=== PATIENT | female | born 1950 | race Caucasian/White ===

== ENCOUNTER 2019-09-08 15:05 | Outpatient (CLI) | payer MEDICARE, MEDICAID, SELFPAY ==
--- NOTE | 2019-09-08 15:12 | USCV_ITS ---
Brii Vasquez Age: 68 Gender: F : 1950 Exam Date: 09/08/2019 15:22 Ordering Phys: Madelaine Vanegas Technologist: Tricia Garcia [place] [facility] [place]: RIGHT CALF PAIN HISTORY: RIGHT LEG PAIN PROCEDURES: Venous duplex imaging was performed in only the right lower extremity. The following venous structures were evaluated: common femoral vein, profunda vein, proximal portion of the greater saphenous vein, superficial femoral vein, and the popliteal vein. In addition, the posterior tibial and peroneal trunk were evaluated. Serial compression, augmentation maneuvers, and spectral Doppler flow evaluation were performed. FINDINGS: ? residual thrombus in the profunda, CFV and popliteal with incomplete filling. All other viens appear free of thrombus at this time. CONCLUSIONS No acute DVT Chronic appearing non occlusive residual thrombus deep femoral, common femoral, and popliteal veins. Richie Arnold MD (Electronically Signed) Final Date: 08 September 2019 16:37 S
== END 2019-09-08 15:06 | disposition home or self-care (01) ==
PROVIDERS: Family Provider Internal Medicine; PCP Internal Medicine; Visit Provider Physician Assistant
DX: I82.511 Chronic embolism and thrombosis of right femoral vein (principal); M79.661 Pain in right lower leg
CPT/HCPCS: 93971

== ENCOUNTER 2019-09-09 06:40 | Outpatient (CLI) | payer MEDICARE, MEDICAID, SELFPAY ==
--- NOTE | 2019-09-09 07:15 | USCV_ITS ---
Brii Vasquez Age: 68 Gender: F : 1950 Exam Date: 09/09/2019 06:43 Ordering Phys: Madelaine Vanegas Technologist: Jacklyn Enriquez [place] [facility] [place]: RIGHT CALF PAIN RIGHT LEFT Brachial 138.00 mmHg Brachial 141.00 mmHg Pressure (mmHg) Waveform Pressure (mmHg) Waveform 194.00 BUSINESS PROJECT MANAGER 191.00 170.00 DPA 177.00 1.38 Ankle/Brachial Index 1.35 132.00 Pre-Exercise Toe Pressure 115.00 FINDINGS Normal resting ABIs and TBIs bilaterally CONCLUSIONS No significant arterial obstruction, based on the above findings Dr Domingo Larson MD [facility] (Electronically Signed) Final Date: 09 September 2019 18:01 S
== END 2019-09-09 06:41 | disposition home or self-care (01) ==
LOC: RAD 06:41
PROVIDERS: Family Provider Internal Medicine; PCP Internal Medicine; Visit Provider Physician Assistant
DX: M79.661 Pain in right lower leg (principal)
CPT/HCPCS: 93922

== ENCOUNTER 2019-09-20 10:10 | Outpatient (CLI) | payer MEDICARE, MEDICAID, SELFPAY ==
--- NOTE | 2019-09-20 10:14 | MM_ITS ---
WS: [id number] SCREENING DIGITAL MAMMOGRAM WITH CAD HISTORY: SCREENING COMPARISON: 07/22/2018 and 07/04/2017 Bilateral CC and MLO views submitted. Computer aided detection analyzed. Breast composition: There are scattered areas of fibroglandular density. No suspicious masses, microc alcifications or architectural distortion. Benign calcifications within each breast. MM/[place] [id number] IMPRESSION: BI-RADS: 2-Benign FOLLOW UP: 1 Year Follow-up
== END 2019-09-20 10:11 | disposition home or self-care (01) ==
LOC: RADSHAW 10:10
PROVIDERS: Family Provider Internal Medicine; PCP Internal Medicine; Visit Provider Internal Medicine
DX: Z12.31 Encounter for screening mammogram for malignant neoplasm of breast (principal)
CPT/HCPCS: 77067

== ENCOUNTER → 2019-09-29 10:13 | Outpatient (BNVA) | payer MEDICARE, MEDICAID, SELFPAY | PROVIDERS: Family Provider Internal Medicine; PCP Internal Medicine; Visit Provider Nurse Practitioner Psychiatric/Mental Health | DX: F33.2 Major depressive disorder, recurrent severe without psychotic features (principal); F43.12 Post-traumatic stress disorder, chronic; G30.9 Alzheimer's disease, unspecified; F02.80 Dementia in other diseases classified elsewhere, unspecified severity, without behavioral disturbance, psychotic disturbance, mood disturbance, and anxiety | CPT/HCPCS: 99214 ==

== ENCOUNTER → 2019-10-19 10:44 | Outpatient (BNVA) | payer MEDICARE, MEDICAID, SELFPAY | PROVIDERS: Family Provider Internal Medicine; PCP Internal Medicine; Referring Provider Obstetrics & Gynecology; Visit Provider Obstetrics & Gynecology | DX: R10.2 Pelvic and perineal pain (principal); Z90.710 Acquired absence of both cervix and uterus | CPT/HCPCS: 76830 ==

== ENCOUNTER → 2019-10-25 13:06 | Outpatient (BNVA) | payer MEDICARE, MEDICAID, SELFPAY | PROVIDERS: Family Provider Internal Medicine; PCP Internal Medicine; Visit Provider Nurse Practitioner Psychiatric/Mental Health | DX: F33.2 Major depressive disorder, recurrent severe without psychotic features (principal); G30.9 Alzheimer's disease, unspecified; F02.80 Dementia in other diseases classified elsewhere, unspecified severity, without behavioral disturbance, psychotic disturbance, mood disturbance, and anxiety; F43.12 Post-traumatic stress disorder, chronic | CPT/HCPCS: 99214 ==

== ENCOUNTER → 2019-11-02 08:57 | Outpatient (BNVA) | payer MEDICARE, MEDICAID, SELFPAY | PROVIDERS: Family Provider Internal Medicine; PCP Internal Medicine; Visit Provider Nurse Practitioner Psychiatric/Mental Health | DX: F33.2 Major depressive disorder, recurrent severe without psychotic features (principal); F43.12 Post-traumatic stress disorder, chronic; G30.9 Alzheimer's disease, unspecified; F02.80 Dementia in other diseases classified elsewhere, unspecified severity, without behavioral disturbance, psychotic disturbance, mood disturbance, and anxiety | CPT/HCPCS: 99214 ==

== ENCOUNTER → 2019-11-16 07:59 | Outpatient (BNVA) | payer MEDICARE, MEDICAID, SELFPAY | PROVIDERS: Family Provider Internal Medicine; PCP Internal Medicine; Visit Provider Nurse Practitioner Psychiatric/Mental Health | DX: F33.2 Major depressive disorder, recurrent severe without psychotic features (principal); F43.12 Post-traumatic stress disorder, chronic; G30.9 Alzheimer's disease, unspecified; F02.80 Dementia in other diseases classified elsewhere, unspecified severity, without behavioral disturbance, psychotic disturbance, mood disturbance, and anxiety | CPT/HCPCS: 99214 ==

== ENCOUNTER → 2019-12-15 15:57 | Outpatient (BNVA) | payer MEDICARE, MEDICAID, SELFPAY | PROVIDERS: Family Provider Internal Medicine; PCP Internal Medicine; Visit Provider Social Worker | DX: F33.2 Major depressive disorder, recurrent severe without psychotic features (principal); F43.12 Post-traumatic stress disorder, chronic; G30.9 Alzheimer's disease, unspecified; F02.80 Dementia in other diseases classified elsewhere, unspecified severity, without behavioral disturbance, psychotic disturbance, mood disturbance, and anxiety | CPT/HCPCS: 90832 ==

== ENCOUNTER → 2019-12-16 08:26 | Outpatient (BNVA) | payer MEDICARE, MEDICAID, SELFPAY | PROVIDERS: Family Provider Internal Medicine; PCP Internal Medicine; Visit Provider Nurse Practitioner Psychiatric/Mental Health | DX: F33.2 Major depressive disorder, recurrent severe without psychotic features (principal); F43.12 Post-traumatic stress disorder, chronic; G30.9 Alzheimer's disease, unspecified; F02.80 Dementia in other diseases classified elsewhere, unspecified severity, without behavioral disturbance, psychotic disturbance, mood disturbance, and anxiety | CPT/HCPCS: 99214 ==

== ENCOUNTER → 2019-12-28 08:24 | Outpatient (BNVA) | payer MEDICARE, MEDICAID, SELFPAY | PROVIDERS: Family Provider Internal Medicine; PCP Internal Medicine; Visit Provider Social Worker | DX: F33.2 Major depressive disorder, recurrent severe without psychotic features (principal); F43.12 Post-traumatic stress disorder, chronic; G30.9 Alzheimer's disease, unspecified; F02.80 Dementia in other diseases classified elsewhere, unspecified severity, without behavioral disturbance, psychotic disturbance, mood disturbance, and anxiety | CPT/HCPCS: 90834 ==

== ENCOUNTER → 2019-12-31 07:43 | Outpatient (BNVA) | payer MEDICARE, MEDICAID, SELFPAY | PROVIDERS: Family Provider Internal Medicine; PCP Internal Medicine; Visit Provider Nurse Practitioner Psychiatric/Mental Health | DX: F33.2 Major depressive disorder, recurrent severe without psychotic features (principal); F43.12 Post-traumatic stress disorder, chronic; G30.9 Alzheimer's disease, unspecified; F02.80 Dementia in other diseases classified elsewhere, unspecified severity, without behavioral disturbance, psychotic disturbance, mood disturbance, and anxiety | CPT/HCPCS: 99214 ==

== ENCOUNTER → 2020-01-11 07:58 | Outpatient (BNVA) | payer MEDICARE, MEDICAID, SELFPAY | PROVIDERS: Family Provider Internal Medicine; PCP Internal Medicine; Visit Provider Social Worker | DX: F33.2 Major depressive disorder, recurrent severe without psychotic features (principal); F41.8 Other specified anxiety disorders; F41.0 Panic disorder [episodic paroxysmal anxiety]; G30.9 Alzheimer's disease, unspecified; F02.80 Dementia in other diseases classified elsewhere, unspecified severity, without behavioral disturbance, psychotic disturbance, mood disturbance, and anxiety | CPT/HCPCS: 90834 ==

== ENCOUNTER → 2020-01-13 08:33 | Outpatient (BNVA) | payer MEDICARE, MEDICAID, SELFPAY | PROVIDERS: Family Provider Internal Medicine; Visit Provider Nurse Practitioner Psychiatric/Mental Health | DX: F33.2 Major depressive disorder, recurrent severe without psychotic features (principal); F43.12 Post-traumatic stress disorder, chronic; G30.9 Alzheimer's disease, unspecified; F02.80 Dementia in other diseases classified elsewhere, unspecified severity, without behavioral disturbance, psychotic disturbance, mood disturbance, and anxiety | CPT/HCPCS: 99214 ==

== ENCOUNTER → 2020-01-17 08:36 | Outpatient (BNVA) | payer MEDICARE, MEDICAID, SELFPAY | PROVIDERS: Family Provider Internal Medicine; Visit Provider Social Worker | DX: G30.9 Alzheimer's disease, unspecified (principal); F02.80 Dementia in other diseases classified elsewhere, unspecified severity, without behavioral disturbance, psychotic disturbance, mood disturbance, and anxiety; F43.12 Post-traumatic stress disorder, chronic; F33.2 Major depressive disorder, recurrent severe without psychotic features; F41.0 Panic disorder [episodic paroxysmal anxiety] | CPT/HCPCS: 90834 ==

== ENCOUNTER → 2020-01-31 08:25 | Outpatient (BNVA) | payer MEDICARE, MEDICAID, SELFPAY | PROVIDERS: Family Provider Internal Medicine; Visit Provider Social Worker | DX: F43.12 Post-traumatic stress disorder, chronic (principal); F33.2 Major depressive disorder, recurrent severe without psychotic features; F02.80 Dementia in other diseases classified elsewhere, unspecified severity, without behavioral disturbance, psychotic disturbance, mood disturbance, and anxiety; F41.0 Panic disorder [episodic paroxysmal anxiety] | CPT/HCPCS: 90834 ==

== ENCOUNTER → 2020-02-03 07:36 | Outpatient (BNVA) | payer MEDICARE, MEDICAID, SELFPAY | PROVIDERS: Family Provider Internal Medicine; Visit Provider Nurse Practitioner Psychiatric/Mental Health | DX: F33.2 Major depressive disorder, recurrent severe without psychotic features (principal); F43.12 Post-traumatic stress disorder, chronic; G30.9 Alzheimer's disease, unspecified; F02.80 Dementia in other diseases classified elsewhere, unspecified severity, without behavioral disturbance, psychotic disturbance, mood disturbance, and anxiety | CPT/HCPCS: 99214 ==

== ENCOUNTER → 2020-02-07 08:09 | Outpatient (BNVA) | payer MEDICARE, MEDICAID, SELFPAY | PROVIDERS: Family Provider Internal Medicine; Referring Provider Nurse Practitioner Psychiatric/Mental Health; Visit Provider Specialist | DX: G30.9 Alzheimer's disease, unspecified (principal); F02.80 Dementia in other diseases classified elsewhere, unspecified severity, without behavioral disturbance, psychotic disturbance, mood disturbance, and anxiety; Z87.891 Personal history of nicotine dependence | CPT/HCPCS: 99204 ==

== ENCOUNTER → 2020-02-28 07:37 | Outpatient (BNVA) | payer MEDICARE, MEDICAID, SELFPAY | PROVIDERS: Family Provider Internal Medicine; Visit Provider Nurse Practitioner Psychiatric/Mental Health | DX: F33.2 Major depressive disorder, recurrent severe without psychotic features (principal); F43.12 Post-traumatic stress disorder, chronic; G30.9 Alzheimer's disease, unspecified; F02.80 Dementia in other diseases classified elsewhere, unspecified severity, without behavioral disturbance, psychotic disturbance, mood disturbance, and anxiety | CPT/HCPCS: 99214 ==

== ENCOUNTER → 2020-03-31 07:39 | Outpatient (BNVA) | payer MEDICARE, MEDICAID, SELFPAY | PROVIDERS: Family Provider Internal Medicine; PCP Internal Medicine; Visit Provider Nurse Practitioner Psychiatric/Mental Health | DX: F33.2 Major depressive disorder, recurrent severe without psychotic features (principal); F43.12 Post-traumatic stress disorder, chronic | CPT/HCPCS: 99214 ==

== ENCOUNTER → 2020-05-03 08:04 | Outpatient (BNVA) | payer MEDICARE, MEDICAID, SELFPAY | PROVIDERS: Family Provider Internal Medicine; PCP Internal Medicine; Visit Provider Psychiatry & Neurology Psychiatry | DX: F33.2 Major depressive disorder, recurrent severe without psychotic features (principal); F43.12 Post-traumatic stress disorder, chronic; G31.84 Mild cognitive impairment of uncertain or unknown etiology | CPT/HCPCS: 99214 ==

== ENCOUNTER → 2020-05-23 08:21 | Outpatient (BNVA) | payer MEDICARE, MEDICAID, SELFPAY | PROVIDERS: Family Provider Internal Medicine; PCP Internal Medicine; Visit Provider Specialist | DX: G31.84 Mild cognitive impairment of uncertain or unknown etiology (principal); Z87.891 Personal history of nicotine dependence | CPT/HCPCS: 96116; 99213 ==

== ENCOUNTER → 2020-05-31 07:39 | Outpatient (BNVA) | payer MEDICARE, MEDICAID, SELFPAY | PROVIDERS: Family Provider Internal Medicine; PCP Internal Medicine; Visit Provider Psychiatry & Neurology Psychiatry | DX: F33.2 Major depressive disorder, recurrent severe without psychotic features (principal); F43.12 Post-traumatic stress disorder, chronic; G31.84 Mild cognitive impairment of uncertain or unknown etiology | CPT/HCPCS: 99213 ==

== ENCOUNTER 2020-06-26 12:49 | Emergency (ER) | payer MEDICARE, MEDICAID, SELFPAY ==
[2020-06-26 13:07] VITALS: BP 133/81; PULSE 84; RESP 14; TEMP 36.8; O2SAT 95; BMI 38.2
--- NOTE | 2020-06-26 13:14 | ED_ITS ---
HPI - General Adult General: Chief complaint: General Medical Stated complaint: all over pain Time Seen by Provider: 06/26/20 13:14 History of Present Illness: HPI narrative: Patient is a 69-year-old female comes to the ED with acute on chronic lower back pain. Patient says pain started approximately 4 days ago and denies any injury or trauma to cause acute pain. She describes the pain as sharp pain radiates to left hip and upper leg. Patient currently sees pain management and has been prescribed hydrocodone 10mg for pain. Associated symptoms: Deny chest pain, dyspnea, headache(s), nausea, rash, palpitations or vomiting Review of Systems Const: Denies: fever(s), chills or fatigue Eyes: Denies: change in vision or eye discomfort ENMT: Denies: throat pain, odynophagia, nasal discharge or nasal congestion Card: Denies: chest pain, palpitations, edema, swelling of feet/ankles, dyspnea on exertion or orthopnea Resp: Denies: dyspnea, productive cough or non-productive cough GI: Denies: abdominal pain, nausea, vomiting, diarrhea, constipation or hematochezia : Denies: flank pain, dysuria or hematuria Musc: Reports: back pain (lower back with pain radiating to left hip and upper leg.); Denies: neck pain or extremity swelling Skin/Breast: Denies: rash or new lesions Neuro: Denies: headache(s), numbness in extremities or weakness in extremities PFS ED PFSH: Medical History Alzheimer's dementia Anticoagulation adequate with anticoagulant therapy Takes Eliquis CAD (coronary artery disease) Chronic pain Chronic post-traumatic stress disorder Deep vein thrombosis Dyslipidemia Essential hypertension Hypertension Hypothyroid Major depressive disorder, recurrent severe without psychotic features Obesity Overactive bladder Postmenopausal HRT (hormone replacement therapy) 12/06/2015. Stopped Prempro. New Rx: Estradiol 1 mg daily. #45. NR. 01/09/2016. Estradiol 1mg well tolerated. Renewal verbal Rx by Dr. Lala. 03/07/2016. Poor symptom control. New Rx: Estradiol 2 mg daily. 03/28/2016. Poor symptom control. New Rx: Premarin. 04/29/2016. Refill provided for Premarin 1.25mg, well tolerated. - Happy with estrogen. Feels the benefits outweigh the risk. Refills provided Sleep apnea Vaginal vault prolapse, posthysterectomy She was counseled regarding the finding of vaginal vault prolapse stage II with cystocele stage III, stress test positive and Q tip test positive. Voided 100 mL and PVR was 25 mL at previous visit. She was counseled regarding conservative management, diet and weight loss, bladder training, avoidance of bladder irritants, and Kegel exercises. She was also counseled regarding surgical management, anterior colporrhaphy with suburethral sling and sacrospinous ligament suspension. She tried conservative managements but refers symptoms have not improved and want to have surgery. She was scheduled for anterior colporrhaphy with sacrospinous ligament suspension and midurethral sling on 10/21/2018. She was counseled about perioperative clearance by PCP. The patient was informed of the risks and benefits of an anterior colporrhaphy, midurethral sling and sacrospinous ligament suspension. Risks included but were not limited to bleeding, infection, and injury to the vagina, bladder, or urethra, and incomplete resolution of symptoms. The patient expressed understanding of the risks involved, all questions were answered, and the patient consented to the procedure and signed the informed consent. Surgical History History of bladder surgery (07/19/09) History of hysterectomy TVH, Anterior Repair with Mesh, Transobturator Suburethral Sling, Cystoscopy. Indication: Uterine prolapse, cystocele, stress urinary incontinence. [facility] [place], Dr. Adalberto Harris. History of tonsillectomy Hx of removal of cyst From left wrist Status post surgery TOSS Family History Unknown Thyroid condition Patient denies medical problems Denies family history of: breast/ovarian/colon cancer Family/Other Thyroid condition Cousin Uterine cancer Aunt Grandmother Stroke Sister Diabetes Other Chronic post-traumatic stress disorder Social History Smoking and tobacco status: former smoker Alcohol intake: never Current occupational status: retired History of recent travel: No Physical Exam Const: COMMON NORMALS: no acute distress, patient oriented x3 and alert GENERAL APPEARANCE: cooperative and comfortable HENMT: COMMON NORMALS: normocephalic HEAD & SCALP: normocephalic MOUTH: Normal oral and palatal mucosa present THROAT: posterior oropharynx normal and uvula midline Neck/C-Spine: COMMON NORMALS: supple GENERAL: Yes normal visual inspection Resp: COMMON NORMALS: normal respiratory effort, No retractions, No use of accessory muscles and clear to auscultation bilaterally AUSCULTATION: clear to auscultation bilaterally Cardio: COMMON NORMALS: regular rate, regular rhythm, S1 normal heart sound present, S2 normal heart sound present, No gallops present (Cardio), No clicks present (Cardio), No murmurs present (Cardio) and Peripheral pulses 2+ throughout RATE: regular rate RHYTHM: regular rhythm HEART SOUNDS: S1 normal heart sound present and S2 normal heart sound present PERIPHERAL PULSES: Peripheral pulses 2+ throughout GI: COMMON NORMALS: Normal to inspection, nondistended, normoactive bowel sounds present, Soft to palpation, non-tender and no masses PALPATION: Yes Soft to palpation : COMMON NORMALS: Yes no CVA tenderness BLADDER/KIDNEY EXAM: Yes no CVA tenderness Back/Pelvis: COMMON NORMALS: no CVA tenderness LUMBAR SPINE/LOWER BACK: Yes paraspinal muscle tenderness Lumbar paraspinal muscle tenderness: left left lumbar paraspinal muscle tenderness: L4 and L5 Extremity: COMMON NORMALS: normal to inspection (normal visual inspection) Neuro: COMMON NORMALS: patient oriented x3 SENSORIUM/ORIENTATION: Yes alert Skin: GENERAL SKIN EXAM: dry skin Course Vital Signs: Vital signs: Vital Signs Temperature 98.2 F 06/26/20 13:07 Pulse Rate 84 06/26/20 13:07 Respiratory Rate 14 06/26/20 13:07 Blood Pressure 133/81 06/26/20 13:07 Pulse Oximetry 95 06/26/20 13:07 MDM - General Adult MDM Narrative: Medical decision making narrative: Patient is a 69-year-old female comes to the ED with Acute on chronic lower back pain. Pain radiates into e left hip and upper thigh. Patient sees pain management and is currently prescribed hydrocodone 10. Exam shows some lumbar paraspinal muscle tenderness. Patient was diagnosed with lumbar radiculopathy and sent with a prescription for tizanidine and Medrol Dosepak. She was told to continue taking her previously prescribed pain meds. she was told to follow-up with PCP in 7 to 10 days for reevaluation. Return ED precautions given. Patient understood agree with plan. Discharge Plan Discharge Patient Disposition: Home Clinical Impression: Lumbar radicular pain Condition: Stable Prescriptions: New tizanidine 2 mg capsule 2 mg PO Q8H PRN (Reason: muscle spasticity) Qty: 30 RF: 0 methylprednisolone 4 mg tablets,dose pack See Rx Instructions .ROUTE .COMPLEX Qty: 21 RF: 0 No Action estradiol 2 mg tablet 2 mg PO QDAY 90 Days Qty: 90 RF: 3 mirtazapine [Remeron] 30 mg tablet 30 mg PO .bedtime Qty: 30 RF: 4 mirtazapine [Remeron] 15 mg tablet 15 mg PO .bedtime Qty: 30 RF: 3 lorazepam 0.5 mg tablet 0.5 mg PO BID@08,16 Qty: 30 RF: 3 memantine [Namenda] 10 mg tablet 10 mg PO BID Qty: 60 RF: 4 trazodone 150 mg tablet 300 mg PO .bedtime Qty: 60 RF: 3 bupropion HCl [Wellbutrin SR] 200 mg tablet sustained-release 12 hr 200 mg PO BID Qty: 60 RF: 2 buspirone 10 mg tablet 10 mg PO TID Qty: 90 RF: 2 levothyroxine 75 mcg capsule 75 mcg PO QDAY RF: 0 verapamil 240 mg capsule,ext rel. pellets 24 hr 240 mg PO QDAY RF: 0 montelukast [Singulair] 10 mg tablet 10 mg PO QDAY RF: 0 potassium chloride [Klor-Con M20] 20 mEq tablet,ER particles/crystals 20 meq PO BID RF: 0 docusate sodium [Colace] 100 mg capsule 100 mg PO BID RF: 0 Eliquis 5 mg tablet 5 mg PO DAILY RF: 0 hydrocodone-acetaminophen 10-325 mg tablet 1 tab PO BID PRNRF: 0 hydrochlorothiazide 25 mg tablet 25 mg PO QDAY RF: 0 Travatan Z 0.004 % drops 1 drop ophthalmic (eye) DAILY PRNRF: 0 rivastigmine tartrate 1.5 mg capsule 1.5 mg PO BID Qty: 60 RF: 5 oxybutynin chloride 5 mg tablet 5 mg PO QDAY 90 Days Qty: 90 RF: 3 Myrbetriq 25 mg tablet extended release 24 hr 25 mg PO DAILY 90 Days Qty: 90 RF: 3 methylprednisolone [Medrol (David)] 4 mg tablets,dose pack See Rx Instructions PO PER PKG DIR Qty: 21 RF: 0 atorvastatin 40 mg tablet 40 mg PO QDAY Qty: 90 RF: 3 quetiapine [Seroquel] 50 mg tablet 50 mg PO BID Qty: 60 RF: 0 Discharge Orders: Discharge Order (Routine); Ordered 06/26/20 Ordered By: Zain Frazier Referrals: Meng Dotson DO [Primary Care Provider] - Discharge Diet: Regular Discharge Activity: Increase activity as tolerated Patient Instructions: Lumbar Radiculopathy (ED) Activity Restrictions/Additional Instructions: Follow-up with medical provider in 7 to 10 days for reevaluation. Take medications as prescribed. Continue taking all home meds including your previously prescribed pain medications. Muscle relaxer tizanidine can cause some drowsiness when you take it so take it at night. If you use during the day take with caution due to drowsiness side effects. Apply cold pack or heat on lower back to help with symptoms, stretch lower back daily. Return to the ER or your medical provider if condition worsens. Please read and understand discharge instructions. If any questions, please ask. Discharge Date/Time: 06/26/20 13:51 Coding Level of Care Code ED Campus Recruiting Coordinator for Chg Fwd Exam Detailed
== END 2020-06-26 13:51 | disposition home or self-care (01) ==
PROVIDERS: Emergency Provider Physician Assistant; PCP Internal Medicine
DX: M54.16 Radiculopathy, lumbar region (principal); Z79.01 Long term (current) use of anticoagulants; G30.9 Alzheimer's disease, unspecified; F02.80 Dementia in other diseases classified elsewhere, unspecified severity, without behavioral disturbance, psychotic disturbance, mood disturbance, and anxiety; I25.10 Atherosclerotic heart disease of native coronary artery without angina pectoris; E78.5 Hyperlipidemia, unspecified; I10 Essential (primary) hypertension; Z87.891 Personal history of nicotine dependence
CPT/HCPCS: 12345; 99281

== ENCOUNTER → 2020-06-28 07:56 | Outpatient (BNVA) | payer MEDICARE, MEDICAID, SELFPAY | PROVIDERS: PCP Internal Medicine; Visit Provider Psychiatry & Neurology Psychiatry | DX: F33.2 Major depressive disorder, recurrent severe without psychotic features (principal); F43.12 Post-traumatic stress disorder, chronic; G31.84 Mild cognitive impairment of uncertain or unknown etiology | CPT/HCPCS: 99213 ==

== ENCOUNTER 2020-07-11 16:24 | Emergency (ER) | payer MEDICARE, MEDICAID, SELFPAY ==
[2020-07-11 16:30] VITALS: BP 124/72; PULSE 95; RESP 18; TEMP 36.5; O2SAT 95; BMI 39.9
--- NOTE | 2020-07-11 20:56 | ECG_ITS ---
[facility] Test Date: 2020-07-11 Pat Name: Brii Vasquez Department: Room: Gender: Female Appeals Nurse: : 1950 Requested By: Zain Frazier Order Number: [id number] MD: Nicola Mcwilliams M.D. Measurements Intervals [place] Rate: 66 P: -7 TN: 140 QRS: -28 QRSD: 98 T: 7 QT: 404 QTc: 425 Interpretive Statements SINUS RHYTHM Compared to ECG 03/29/2019 11:38:53 No significant changes Electronically Signed On 07-12-2020 10:15:11 VIDEOGAME DESIGNER by Nicola Mcwilliams M.D. [id number]
--- NOTE | 2020-07-11 20:56 | XR_ITS ---
WS: [id number] Portable AP upright chest, 07/11/2020 Clinical Data: dizziness Comparison: Portable chest, 03/29/2019 Findings: No nodules, masses or effusions are seen. The heart is normal. The pulmonary vascularity is not increased. No pneumonia or pneumothorax is seen. The aortic arch and descending aorta are minima lly tortuous. XR/XR chest 1V portable [id number] Impression: Atherosclerosis.
--- NOTE | 2020-07-11 20:58 | ED_ITS ---
HPI - Headache General: Chief Complaint: Headache Stated Complaint: Dizzy/Headache/Aches Time Seen by Provider: 07/11/20 20:56 History of Present Illness: HPI Narrative: Patient is a 69-year-old female who comes to the ED with dizziness and a headache. Past medical history of fibromyalgia DVT and on blood thinner, hypertension, dyslipidemia. She also describes having aching pain all over that she says is her fibromyalgia acting up. Symptoms have been going on for about a week now. Headache is described at the top of her head and then goes down the back of her head. She is also complaining of having pain all over her body. Associated symptoms: Deny chest pain, fever(s), nausea, rash or vomiting Review of Systems Const: Denies: fever(s), chills or fatigue Eyes: Denies: change in vision or eye discomfort ENMT: Denies: throat pain, odynophagia, nasal discharge or nasal congestion Card: Denies: chest pain, palpitations, edema, swelling of feet/ankles, dyspnea on exertion or orthopnea Resp: Denies: dyspnea, productive cough or non-productive cough GI: Denies: abdominal pain, nausea, vomiting, diarrhea, constipation or hematochezia : Denies: flank pain, dysuria or hematuria Musc: Denies: neck pain, back pain or extremity swelling Skin/Breast: Denies: rash or new lesions Neuro: Reports: headache(s) and dizziness; Denies: numbness in extremities or weakness in extremities PFS ED PFSH: Medical History Alzheimer's dementia Anticoagulation adequate with anticoagulant therapy Takes Eliquis CAD (coronary artery disease) Chronic pain Chronic post-traumatic stress disorder Deep vein thrombosis Dyslipidemia Essential hypertension Hypertension Hypothyroid Major depressive disorder, recurrent severe without psychotic features Obesity Overactive bladder Postmenopausal HRT (hormone replacement therapy) 12/06/2015. Stopped Prempro. New Rx: Estradiol 1 mg daily. #45. NR. 01/09/2016. Estradiol 1mg well tolerated. Renewal verbal Rx by Dr. Lala. 03/07/2016. Poor symptom control. New Rx: Estradiol 2 mg daily. 03/28/2016. Poor symptom control. New Rx: Premarin. 04/29/2016. Refill provided for Premarin 1.25mg, well tolerated. - Happy with estrogen. Feels the benefits outweigh the risk. Refills provided Sleep apnea Vaginal vault prolapse, posthysterectomy She was counseled regarding the finding of vaginal vault prolapse stage II with cystocele stage III, stress test positive and Q tip test positive. Voided 100 mL and PVR was 25 mL at previous visit. She was counseled regarding conservative management, diet and weight loss, bladder training, avoidance of bladder irritants, and Kegel exercises. She was also counseled regarding surgical management, anterior colporrhaphy with suburethral sling and sacrospinous ligament suspension. She tried conservative managements but refers symptoms have not improved and want to have surgery. She was scheduled for anterior colporrhaphy with sacrospinous ligament suspension and midurethral sling on 10/21/2018. She was counseled about perioperative clearance by PCP. The patient was informed of the risks and benefits of an anterior colporrhaphy, midurethral sling and sacrospinous ligament suspension. Risks included but were not limited to bleeding, infection, and injury to the vagina, bladder, or urethra, and incomplete resolution of symptoms. The patient expressed understanding of the risks involved, all questions were answered, and the patient consented to the procedure and signed the informed consent. Surgical History History of bladder surgery (07/19/09) History of hysterectomy TVH, Anterior Repair with Mesh, Transobturator Suburethral Sling, Cystoscopy. Indication: Uterine prolapse, cystocele, stress urinary incontinence. [facility] [place], Dr. Adalberto Harris. History of tonsillectomy Hx of removal of cyst From left wrist Status post surgery TOSS Family History Unknown Thyroid condition Patient denies medical problems Denies family history of: breast/ovarian/colon cancer Family/Other Thyroid condition Cousin Uterine cancer Aunt Grandmother Stroke Sister Diabetes Other Chronic post-traumatic stress disorder Social History Smoking and tobacco status: former smoker Alcohol intake: never Current occupational status: retired History of recent travel: No Physical Exam Const: COMMON NORMALS: no acute distress, patient oriented x3 and alert GENERAL APPEARANCE: cooperative and comfortable HENMT: COMMON NORMALS: normocephalic HEAD & SCALP: normocephalic MOUTH: Normal oral and palatal mucosa present THROAT: posterior oropharynx normal and uvula midline Eye: COMMON NORMALS: Equal, round and reactive pupils present and EOMs intact bilaterally PUPIL: Yes Equal, round and reactive pupils present Neck/C-Spine: COMMON NORMALS: supple GENERAL: Yes normal visual inspection Resp: COMMON NORMALS: normal respiratory effort, No retractions, No use of accessory muscles and clear to auscultation bilaterally AUSCULTATION: clear to auscultation bilaterally Cardio: COMMON NORMALS: regular rate, regular rhythm, S1 normal heart sound present, S2 normal heart sound present, No gallops present (Cardio), No clicks present (Cardio), No murmurs present (Cardio) and Peripheral pulses 2+ throughout RATE: regular rate RHYTHM: regular rhythm HEART SOUNDS: S1 normal heart sound present and S2 normal heart sound present PERIPHERAL PULSES: Peripheral pulses 2+ throughout GI: COMMON NORMALS: Normal to inspection, nondistended, normoactive bowel sounds present, Soft to palpation, non-tender and no masses PALPATION: Yes Soft to palpation : COMMON NORMALS: Yes no CVA tenderness BLADDER/KIDNEY EXAM: Yes no CVA tenderness Back/Pelvis: COMMON NORMALS: no CVA tenderness Extremity: COMMON NORMALS: normal to inspection and no pedal edema Neuro: COMMON NORMALS: patient oriented x3, CN's II-XII intact bilaterally, moves all extremities, no focal motor deficits and no sensory deficits noted SENSORIUM/ORIENTATION: Yes alert SENSORY EXAM: Yes extremities (intact) MOTOR EXAM: 5/5 motor strength present throughout Skin: GENERAL SKIN EXAM: dry skin Course Reevaluation(s): Reevaluation #1: Patient says she is feeling better after getting IV fluids, Tylenol and Solu-Medrol. Headache has improved. Time: 23:23 Vital Signs: Vital signs: Vital Signs Temperature 97.7 F 07/11/20 16:30 Pulse Rate 78 07/12/20 01:34 Respiratory Rate 16 07/12/20 01:34 Blood Pressure 123/87 07/12/20 01:34 Pulse Oximetry 98 07/12/20 01:34 MDM - Headache MDM Narrative: Medical decision making narrative: Patient is a 69-year-old female comes to the ED with headache, dizziness and pain all over. Patient has a history of fibromyalgia, hypertension, CAD, dyslipidemia. Patient sees pain management and has a prescription for hydrocodone 10mg for pain. Patient appears in no acute distress or pain. All labs were unremarkable and troponin negative and EKG showed normal sinus with no ST segment elevation or depression seen. CT of head showed no acute findings. Chest x-ray normal. Patient was given IV fluids, Tylenol and Solu-Medrol. She says her symptoms improved. Patient diagnosed with headache and chronic pain. Patient was discharged and told to follow-up with PCP for reevaluation in 5 to 7 days. Return to ED precautions given. Lab Data: Attestation: I reviewed the patient's lab results. Labs: Lab Results 07/11/20 07/11/20 07/11/20 Range/Units 00:20 21:40 21:40 WBC 11.8 H (4.0-10.0) 10^3/ uL RBC 4.94 (4.1-5.3) 10^6/u L Hgb 14.0 (11.5-15.3) g/dL Hct 43.4 (37.0-47.0) % MCV 87.9 (81-99) fL MCH 28.3 (28.0-34.0) pg MCHC 32.3 (30.0-36.0) g/dL RDW 13.2 (12.1-15.1) % Plt Count 291 (130-400) 10^3/c mm MPV 9.3 (7.4-10.4) fL Neut % (Auto) 58.6 % Lymph % (Auto) 32.7 % [place] % (Auto) 6.5 % Eos % (Auto) 1.5 % Baso % (Auto) 0.4 % Neut # (Auto) 6.88 (1.8-7.7) 10^3/u L Lymph # (Auto) 3.8 (0.8-4.8) 10^3/u L [place] # (Auto) 0.8 (0.2-0.9) 10^3/u L Eos # (Auto) 0.2 (0.0-0.8) 10^3/u L Baso # (Auto) 0.1 (0.0-0.1) 10^3/u L Nucleated RBC % (a uto) 0 % Nucleated RBCs # 0.0 /100WBC Sodium 139 (136-145) mmol/L Potassium 4.3 (3.5-5.1) mmol/L Chloride 101 (98-107) mmol/L Carbon Dioxide 28 (22-29) mmol/L Anion Gap 14.3 (5-19) BUN 11 (8-23) mg/dL Creatinine 0.8 (0.5-0.9) mg/dL GFR Calculation 71.3 L (90-130) mL/min Glucose 94 (65-115) mg/dL Calculated Osmolal ity 287 (285-295) mOsm/k g Calcium 10.0 (8.5-10.5) mg/dL Total Bilirubin 0.2 (0.15-1.2) mg/dL AST 20 (0-32) U/L ALT 14 (0-33) U/L Alkaline Phosphata se 132 H (35-105) IU/L Troponin T Baselin e (0-10) ng/L Troponin T [address] [place] 13.70 H (0-10) ng/L Delta Troponin T Not Reportable Total Protein 7.2 (6.6-8.7) g/dL Albumin 4.1 (3.5-5.2) g/dL Globulin 3.1 (1.3-4.6) g/dL Lipase 32 (13-60) U/L Urine Color (Yellow) Urine Appearance (CLEAR) Urine pH (5-7) Ur Specific Gravit y (1.005-1.030) Urine Protein (Negative) Urine Glucose (UA) (Normal) Urine Ketones (Negative) Urine Blood (Negative) Urine Nitrate (Negative) Urine Bilirubin (Negative) Urine Urobilinogen (Negative) mg/dL Ur Leukocyte Krystyna ase (Negative) Urine RBC (0-2) /hpf Urine WBC (0-5) /hpf Ur Squamous Epith Cells (0-5) /hpf Amorphous Sediment Urine Bacteria (NONE) /hpf 07/11/20 07/11/20 Range/Units 21:40 21:40 WBC (4.0-10.0) 10^3/ uL RBC (4.1-5.3) 10^6/u L Hgb (11.5-15.3) g/dL Hct (37.0-47.0) % MCV (81-99) fL MCH (28.0-34.0) pg MCHC (30.0-36.0) g/dL RDW (12.1-15.1) % Plt Count (130-400) 10^3/c mm MPV (7.4-10.4) fL Neut % (Auto) % Lymph % (Auto) % [place] % (Auto) % Eos % (Auto) % Baso % (Auto) % Neut # (Auto) (1.8-7.7) 10^3/u L Lymph # (Auto) (0.8-4.8) 10^3/u L [place] # (Auto) (0.2-0.9) 10^3/u L Eos # (Auto) (0.0-0.8) 10^3/u L Baso # (Auto) (0.0-0.1) 10^3/u L Nucleated RBC % (a uto) % Nucleated RBCs # /100WBC Sodium (136-145) mmol/L Potassium (3.5-5.1) mmol/L Chloride (98-107) mmol/L Carbon Dioxide (22-29) mmol/L Anion Gap (5-19) BUN (8-23) mg/dL Creatinine (0.5-0.9) mg/dL GFR Calculation (90-130) mL/min Glucose (65-115) mg/dL Calculated Osmolal ity (285-295) mOsm/k g Calcium (8.5-10.5) mg/dL Total Bilirubin (0.15-1.2) mg/dL AST (0-32) U/L ALT (0-33) U/L Alkaline Phosphata se (35-105) IU/L Troponin T Baselin e 13 H (0-10) ng/L Troponin T [address] [place] (0-10) ng/L Delta Troponin T Total Protein (6.6-8.7) g/dL Albumin (3.5-5.2) g/dL Globulin (1.3-4.6) g/dL Lipase (13-60) U/L Urine Color Yellow (Yellow) Urine Appearance Clear (CLEAR) Urine pH 5.0 (5-7) Ur Specific Gravit y 1.015 (1.005-1.030) Urine Protein Neg (Negative) Urine Glucose (UA) Norm (Normal) Urine Ketones Negative (Negative) Urine Blood Neg (Negative) Urine Nitrate Negative (Negative) Urine Bilirubin Neg (Negative) Urine Urobilinogen Norm (Negative) mg/dL Ur Leukocyte Krystyna ase Negative (Negative) Urine RBC None (0-2) /hpf Urine WBC None (0-5) /hpf Ur Squamous Epith Cells None (0-5) /hpf Amorphous Sediment Not Reportable Urine Bacteria None (NONE) /hpf Imaging Data^: CT Head: Attestation: I personally reviewed and interpreted this imaging study as follows: Radiologist's impression: [address] [address] [address] Scan Report Signed Patient: Brii Vasquez Unit #: [id number] : 1950 Age/Sex: 69 / F ADM Date: 07/11/20 Loc: ER Room/Bed: Attending Dr: Ordering Provider/Ordering MD: Zain Frazier Date of Service: 07/11/20 Procedure(s): CT head wo con* [id number] Accession Number(s): [id number] Report Number: [id number] PROCEDURE INFORMATION: Exam: CT Head Without Contrast Exam date and time: 07/11/2020 9:15 PM Age: 69 years old Clinical indication: Dizziness; Additional info: ALANIZ and dizziness TECHNIQUE: Imaging protocol: Computed tomography of the head without contrast. Radiation optimization: All CT scans at this facility use at least one of these dose optimization techniques: automated exposure control; mA and/or kV adjustment per patient size (includes targeted exams where dose is matched to clinical indication); or iterative reconstruction. COMPARISON: No relevant prior studies available. RADIATION DOSE METRICS: Total DLP (mGy-cm): 904.29 FINDINGS: Brain: Mild parenchymal volume loss noted. There is decreased attenuation of the periventricular white matter, consistent with mild microangiopathic chronic white matter disease. No intracranial hemorrhage noted. Cerebral ventricles: The ventricles are proportional to the sulci. No hydrocephalus is noted. Bones/joints: No fracture or other acute osseous abnormality. Paranasal sinuses: The paranasal sinuses, as demonstrated, appear clear. Mastoid air cells: The mastoid air cells are clear bilaterally. Soft tissues: The soft tissues appear unremarkable. CT/CT head wo con* [id number] IMPRESSION: No acute intracranial abnormality demonstrated. Radiation Dose CTDIVOL = (mGy): DLP = 904.29 (mGy-cm) Dictated By: Evangelista Luo MD Signed By: Evangelista Luo MD Signed Date/Time: 07/11/202143 DD/ 41 CXR: Attestation: I personally reviewed and interpreted this imaging study as follows: My impression: Chest x-ray shows no acute findings. EKG Data^: EKG 1: Attestation: I personally reviewed and interpreted this EKG as follows: EKG interpretation date: 07/11/20 Interpretation: Sinus rhythm, 66 bpm, no ST segment elevation or depression seen. EKG 2: Attestation: I personally reviewed and interpreted this EKG as follows: EKG interpretation date: 07/11/20 Interpretation: Sinus rhythm, 68 bpm, no ST segment elevation or depression seen. No acute change compared to EKG done at 2200. Discharge Plan Discharge Patient Disposition: Home Clinical Impression: Headache Qualifiers: Headache type: tension-type Headache chronicity pattern: acute headache Intractability: not intractable Qualified Code(s): G44.209 - Tension-type headache, unspecified, not intractable Chronic pain Qualifiers: Chronic pain type: chronic pain syndrome Qualified Code(s): G89.4 - Chronic pain syndrome Condition: Stable Prescriptions: No Action memantine [Namenda] 10 mg tablet 10 mg PO BID Qty: 60 RF: 4 bupropion HCl [Wellbutrin SR] 200 mg tablet sustained-release 12 hr 200 mg PO BID Qty: 60 RF: 2 levothyroxine 75 mcg capsule 75 mcg PO DAILY RF: 0 verapamil 240 mg capsule,ext rel. pellets 24 hr 240 mg PO QDAY RF: 0 montelukast [Singulair] 10 mg tablet 10 mg PO QDAY RF: 0 potassium chloride [Klor-Con M20] 20 mEq tablet,ER particles/crystals 20 meq PO BID RF: 0 docusate sodium [Colace] 100 mg capsule 100 mg PO BID RF: 0 Eliquis 5 mg tablet 5 mg PO DAILY RF: 0 hydrocodone-acetaminophen 10-325 mg tablet 1 tab PO BID PRN (Reason: Pain) RF: 0 hydrochlorothiazide 25 mg tablet 25 mg PO QDAY RF: 0 Travatan Z 0.004 % drops 1 drop ophthalmic (eye) DAILY PRN (Reason: UNKNOWN) RF: 0 rivastigmine tartrate 1.5 mg capsule 1.5 mg PO BID Qty: 60 RF: 5 oxybutynin chloride 5 mg tablet 5 mg PO QDAY 90 Days Qty: 90 RF: 3 Myrbetriq 25 mg tablet extended release 24 hr 25 mg PO DAILY 90 Days Qty: 90 RF: 3 buspirone 10 mg tablet 20 mg PO TID Qty: 180 RF: 2 trazodone 150 mg tablet 300 mg PO .bedtime Qty: 60 RF: 2 mirtazapine [Remeron] 15 mg tablet 15 mg PO .bedtime Qty: 30 RF: 2 mirtazapine [Remeron] 30 mg tablet 30 mg PO .bedtime Qty: 30 RF: 2 tizanidine 2 mg capsule 2 mg PO Q8H PRN (Reason: muscle spasticity) Qty: 30 RF: 0 meloxicam 7.5 mg tablet 7.5 mg PO DAILY PRN (Reason: UNKNOWN) RF: 0 estradiol 2 mg tablet 2 mg PO DAILY RF: 0 Discharge Orders: Discharge Order (Routine); Ordered 07/12/20 Ordered By: Zain Frazier Referrals: Meng Dotson DO [Primary Care Provider] - Discharge Diet: Regular Discharge Activity: Increase activity as tolerated Patient Instructions: Headache Activity Restrictions/Additional Instructions: Follow-up with medical provider as directed in 5 to 7 days. Continue taking all home medications as prescribed. Return to the ER or your medical provider if condition worsens. Please read and understand discharge instructions. If any questions, please ask. Coding Level of Care Code ED [employer] [facility] Exam Comprehensive
[2020-07-11 22:09] VITALS: BP 121/73; PULSE 74; RESP 25; O2SAT 97
[2020-07-11 22:31] LABS: Basophils # 0.1 10^3/uL (0.0-0.1); Basophils % 0.4 %; Eosinophils # 0.2 10^3/uL (0.0-0.8); Eosinophils % 1.5 %; Hematocrit 43.4 % (37.0-47.0); Lymphocytes # 3.8 10^3/uL (0.8-4.8); Lymphocytes % 32.7 %; Mean Corpuscular HGB Conc 32.3 g/dL (30.0-36.0); Mean Corpuscular Hemoglobin 28.3 pg (28.0-34.0); Mean Corpuscular Volume 87.9 fL (81-99); Mean Platelet Volume 9.3 fL (7.4-10.4); Monocytes # 0.8 10^3/uL (0.2-0.9); Monocytes % 6.5 %; Neutrophils # 6.88 10^3/uL (1.8-7.7); Neutrophils % 58.6 %; Nucleated Red Blood Cells % 0 %; Platelet Count 291 10^3/cmm (130-400); Red Blood Count 4.94 10^6/uL (4.1-5.3); Red Cell Distribution Width 13.2 % (12.1-15.1); White Blood Count 11.8 10^3/uL (4.0-10.0)
[2020-07-11 22:34] LABS: Alanine Aminotransferase 14 U/L (0-33); Albumin Level 4.1 g/dL (3.5-5.2); Alkaline Phosphatase 132 IU/L (35-105); Anion Gap 14.3 (5-19); Aspartate Amino Transferase 20 U/L (0-32); Blood Urea Nitrogen 11 mg/dL (8-23); Carbon Dioxide 28 mmol/L (22-29); Chloride 101 mmol/L (98-107); Globulin 3.1 g/dL (1.3-4.6); Glomerular Filtration Rate 71.3 mL/min (90-130); Glucose 94 mg/dL (65-115); Lipase 32 U/L (13-60); Osmolality Calculated 287 mOsm/kg (285-295); Potassium 4.3 mmol/L (3.5-5.1); Sodium 139 mmol/L (136-145); Total Bilirubin 0.2 mg/dL (0.15-1.2); Total Protein 7.2 g/dL (6.6-8.7)
[2020-07-11 22:36] LABS: Troponin(5th) Baseline 13 ng/L (0-10)
[2020-07-11 22:39] LABS: Bilirubin Urine Neg (Negative); Blood Urine Neg (Negative); Glucose Urine UA Norm (Normal); Ketones Urine Negative (Negative); Leukocyte Esterase Urine Negative (Negative); Nitrate Urine Negative (Negative); Protein Urine Neg (Negative); Specific Gravity, Urine 1.015 (1.005-1.030); Urine Appearance Clear (CLEAR); Urine Color Yellow (Yellow); Urobilinogen Urine Norm (Negative)
[2020-07-11 22:40] LABS: Add Urine Culture? No
--- NOTE | 2020-07-11 22:56 | ECG_ITS ---
[facility] Test Date: 2020-07-11 Pat Name: Brii Vasquez Department: Room: Gender: Female [employer]ology [employer]cheology Instructor: : 1950 Requested By: Zain Frazier Order Number: [id number] [place] MD: Nicola Mcwilliams M.D. Measurements Intervals [place] Rate: 68 P: 69 WI: 145 QRS: 87 QRSD: 88 T: 67 QT: 392 QTc: 419 Interpretive Statements SINUS RHYTHM Compared to ECG 07/11/2020 22:00:14 No significant changes Electronically Signed On 07-12-2020 10:20:54 DIRECTOR OF EVENT MANAGEMENT by Nicola Mcwilliams M.D. [id number]
[2020-07-11] MEDS: sodium chloride 0.9% 1,000 ML 999 ML IV (23:04)
[2020-07-12 01:34] VITALS: BP 123/87; PULSE 78; RESP 16; O2SAT 98
== END 2020-07-12 01:36 | disposition home or self-care (01) ==
PROVIDERS: Emergency Provider Physician Assistant; PCP Internal Medicine
DX: G44.209 Tension-type headache, unspecified, not intractable (principal); G89.4 Chronic pain syndrome; Z79.01 Long term (current) use of anticoagulants; G30.9 Alzheimer's disease, unspecified; F02.80 Dementia in other diseases classified elsewhere, unspecified severity, without behavioral disturbance, psychotic disturbance, mood disturbance, and anxiety; I25.10 Atherosclerotic heart disease of native coronary artery without angina pectoris; E78.5 Hyperlipidemia, unspecified; I10 Essential (primary) hypertension; Z87.891 Personal history of nicotine dependence
CPT/HCPCS: 12345; 70450; 71045; 80053; 81001; 83690; 84484; 85025; 87040; 93005; 96361; 96374; 96375; 99283; 99284; J0131; J2930; J7030

== ENCOUNTER → 2020-07-24 13:08 | Outpatient (BNVA) | payer MEDICARE, MEDICAID, SELFPAY | PROVIDERS: PCP Internal Medicine; Referring Provider Nurse Practitioner; Visit Provider Orthopaedic Surgery | DX: M17.11 Unilateral primary osteoarthritis, right knee (principal) | CPT/HCPCS: 73560; 73565 ==

== ENCOUNTER → 2020-08-09 08:27 | Outpatient (BNVA) | payer MEDICARE, MEDICAID, SELFPAY | PROVIDERS: PCP Internal Medicine; Visit Provider Specialist | DX: G31.84 Mild cognitive impairment of uncertain or unknown etiology (principal); Z87.891 Personal history of nicotine dependence | CPT/HCPCS: 99213 ==

== ENCOUNTER → 2020-08-15 09:27 | Outpatient (BNVA) | payer MEDICARE, MEDICAID, SELFPAY | PROVIDERS: PCP Internal Medicine; Visit Provider Psychiatry & Neurology Psychiatry | DX: F33.2 Major depressive disorder, recurrent severe without psychotic features (principal); F43.12 Post-traumatic stress disorder, chronic; G31.84 Mild cognitive impairment of uncertain or unknown etiology; F41.1 Generalized anxiety disorder | CPT/HCPCS: 99213 ==

== ENCOUNTER → 2020-09-28 08:34 | Outpatient (BNVA) | payer MEDICARE, MEDICAID, SELFPAY | PROVIDERS: PCP Internal Medicine; Visit Provider Psychiatry & Neurology Psychiatry | DX: F41.1 Generalized anxiety disorder (principal); F33.2 Major depressive disorder, recurrent severe without psychotic features; F43.12 Post-traumatic stress disorder, chronic; G31.84 Mild cognitive impairment of uncertain or unknown etiology | CPT/HCPCS: 99214 ==

== ENCOUNTER → 2020-10-26 08:13 | Outpatient (BNVA) | payer MEDICARE, MEDICAID, SELFPAY | PROVIDERS: PCP Internal Medicine; Visit Provider Psychiatry & Neurology Psychiatry | DX: F41.1 Generalized anxiety disorder (principal); G31.84 Mild cognitive impairment of uncertain or unknown etiology; F33.2 Major depressive disorder, recurrent severe without psychotic features; F43.12 Post-traumatic stress disorder, chronic | CPT/HCPCS: 99214 ==

== ENCOUNTER → 2020-11-21 12:27 | Outpatient (BNVA) | payer MEDICARE, MEDICAID, SELFPAY | PROVIDERS: PCP Internal Medicine; Visit Provider Psychiatry & Neurology Psychiatry | DX: F41.1 Generalized anxiety disorder (principal); G31.84 Mild cognitive impairment of uncertain or unknown etiology; F33.2 Major depressive disorder, recurrent severe without psychotic features; F43.12 Post-traumatic stress disorder, chronic | CPT/HCPCS: 99214 ==

== ENCOUNTER → 2020-12-19 12:44 | Outpatient (BNVA) | payer MEDICARE, MEDICAID, SELFPAY | PROVIDERS: PCP Internal Medicine; Visit Provider Psychiatry & Neurology Psychiatry | DX: F41.1 Generalized anxiety disorder (principal); F33.2 Major depressive disorder, recurrent severe without psychotic features; F43.12 Post-traumatic stress disorder, chronic; G31.84 Mild cognitive impairment of uncertain or unknown etiology | CPT/HCPCS: 99213 ==

== ENCOUNTER → 2021-01-22 11:17 | Outpatient (BNVA) | payer MEDICARE, MEDICAID, SELFPAY | PROVIDERS: PCP Internal Medicine; Visit Provider Psychiatry & Neurology Psychiatry | DX: F41.1 Generalized anxiety disorder (principal); F33.2 Major depressive disorder, recurrent severe without psychotic features; G31.84 Mild cognitive impairment of uncertain or unknown etiology | CPT/HCPCS: 99213 ==

== ENCOUNTER → 2021-03-15 09:15 | Outpatient (BNVA) | payer MEDICARE, MEDICAID, SELFPAY | PROVIDERS: PCP Internal Medicine; Visit Provider Obstetrics & Gynecology | DX: N39.46 Mixed incontinence (principal); N81.6 Rectocele; N81.9 Female genital prolapse, unspecified; Z20.822 Contact with and (suspected) exposure to COVID-19 | CPT/HCPCS: 87635 ==

== ENCOUNTER → 2021-03-20 12:29 | Outpatient (BNVA) | payer MEDICARE, MEDICAID, SELFPAY | PROVIDERS: PCP Internal Medicine; Visit Provider Psychiatry & Neurology Psychiatry | DX: F43.12 Post-traumatic stress disorder, chronic (principal); F33.2 Major depressive disorder, recurrent severe without psychotic features; G31.84 Mild cognitive impairment of uncertain or unknown etiology; F41.1 Generalized anxiety disorder | CPT/HCPCS: 99213 ==

== ENCOUNTER 2021-03-21 14:10 | Observation (INO) | payer MEDICARE, MEDICAID, SELFPAY ==
[2021-03-19 11:23] VITALS: BMI 40.7
--- NOTE | 2021-03-19 11:55 | ANES.PREANE2 ---
Pre-Anesthetic Assessment Pre-Anesthetic Assessment: Height/Weight: Height 1.6 m Weight 104.326 kg Preop Diagnosis: Incontinence Proposed Procedure: Operation Date: 03/21/21 10:20 Proposed Procedures p Midurethral singel incision sling 99373 44620 N39.46 N81.6(Not Applicable) - Virgilio Cintron MD s Posterior Repair Posterior Colporrhaphy(Not Applicable) - Virgilio Cintron MD Familial anesthetic complications: None Social: Social History: No alcohol and No tobacco Exam: Pre-Anes Outpt Exam: alert, oriented x 3, clear to auscultation bilaterally and regular rate & rhythm Airway: Cervical ROM: WNL MP: 4 Dentition: Chipped Pulmonary: Pulmonary: SOB CV/HEM: CV/HEM: DVT (Eliquis - occured over 2 - 3 years ago) and HTN GI: GI: GERD Metabolic: Metabolic: Hyperlipidemia, Morbid obesity and Thyroid Musc/skel: Musc/skel: Lower Back Pain Neuropsych: Neuropsych: Anxiety and Dementia (mild) Anesthetic Plan: ASA status: 3 Anesthesia: General Risk of > 500 ml blood loss (7ml/kg in children): No PFSH Anesthesia PFSH: Medical History Alzheimer's dementia Anticoagulation adequate with anticoagulant therapy Takes Eliquis CAD (coronary artery disease) Chronic pain Chronic post-traumatic stress disorder Deep vein thrombosis Dyslipidemia Essential hypertension Hypertension Hypothyroid Major depressive disorder, recurrent severe without psychotic features Obesity Overactive bladder Postmenopausal HRT (hormone replacement therapy) 12/06/2015. Stopped Prempro. New Rx: Estradiol 1 mg daily. #45. NR. 01/09/2016. Estradiol 1mg well tolerated. Renewal verbal Rx by Dr. Lala. 03/07/2016. Poor symptom control. New Rx: Estradiol 2 mg daily. 03/28/2016. Poor symptom control. New Rx: Premarin. 04/29/2016. Refill provided for Premarin 1.25mg, well tolerated. - Happy with estrogen. Feels the benefits outweigh the risk. Refills provided Sleep apnea Vaginal vault prolapse, posthysterectomy She was counseled regarding the finding of vaginal vault prolapse stage II with cystocele stage III, stress test positive and Q tip test positive. Voided 100 mL and PVR was 25 mL at previous visit. She was counseled regarding conservative management, diet and weight loss, bladder training, avoidance of bladder irritants, and Kegel exercises. She was also counseled regarding surgical management, anterior colporrhaphy with suburethral sling and sacrospinous ligament suspension. She tried conservative managements but refers symptoms have not improved and want to have surgery. She was scheduled for anterior colporrhaphy with sacrospinous ligament suspension and midurethral sling on 10/21/2018. She was counseled about perioperative clearance by PCP. The patient was informed of the risks and benefits of an anterior colporrhaphy, midurethral sling and sacrospinous ligament suspension. Risks included but were not limited to bleeding, infection, and injury to the vagina, bladder, or urethra, and incomplete resolution of symptoms. The patient expressed understanding of the risks involved, all questions were answered, and the patient consented to the procedure and signed the informed consent. Surgical History History of bladder surgery (07/19/09) History of hysterectomy TVH, Anterior Repair with Mesh, Transobturator Suburethral Sling, Cystoscopy. Indication: Uterine prolapse, cystocele, stress urinary incontinence[place] [facility] [place] Adalber[place]. History of tonsillectomy Hx of removal of cyst From left wrist Status post surgery TOSS Family History Unknown Thyroid condition Patient denies medical problems Denies family history of: breast/ovarian/colon cancer Family/Other Thyroid condition Cousin Uterine cancer Aunt Grandmother Stroke Sister Diabetes Other Chronic post-traumatic stress disorder Social History (Updated 03/19/21 @ 09:13 by Rochelle Winslow RN) Smoking and tobacco status: former smoker Alcohol intake: never Substance/Drug Use: never Current occupational status: retired Data Anesthesia Cardiac Studies: No Data to Display
[2021-03-19 12:07] LABS: Basophils # 0.1 10^3/uL (0.0-0.1); Basophils % 0.5 %; Eosinophils # 0.2 10^3/uL (0.0-0.8); Eosinophils % 2.2 %; Hematocrit 41.5 % (37.0-47.0); Hemoglobin 13.7 g/dL (11.5-15.3); Lymphocytes # 2.5 10^3/uL (0.8-4.8); Lymphocytes % 26.6 %; Mean Corpuscular Hemoglobin 29.1 pg (28.0-34.0); Mean Corpuscular Volume 88.3 fL (81-99); Mean Platelet Volume 9.1 fL (7.4-10.4); Monocytes # 0.5 10^3/uL (0.2-0.9); Monocytes % 5.9 %; Neutrophils # 5.93 10^3/uL (1.8-7.7); Neutrophils % 64.4 %; Nucleated Red Blood Cells % 0 %; Platelet Count 262 10^3/cmm (130-400); White Blood Count 9.2 10^3/uL (4.0-10.0)
[2021-03-19 14:01] LABS: Anion Gap 14.7 (5-19); Blood Urea Nitrogen 13 mg/dL (8-23); Calcium 9.9 mg/dL (8.5-10.5); Carbon Dioxide 28 mmol/L (22-29); Chloride 100 mmol/L (98-107); Glomerular Filtration Rate 71.1 mL/min (90-130); Glucose 94 mg/dL (65-115); Osmolality Calculated 288 mOsm/kg (285-295); Potassium 3.7 mmol/L (3.5-5.1); Sodium 139 mmol/L (136-145)
[2021-03-21] VITALS (19 sets, daily range): BP systolic 120–160; BP diastolic 61–91; PULSE 74–100; RESP 11–21; TEMP 36.6–37.4; O2SAT 92–99
[2021-03-21] MEDS: sodium chloride 0.9% 1,000 ML 30 ML IV (09:02)
--- NOTE | 2021-03-21 09:29 | P.ANESUD_ITS ---
Pre-Anesthetic Update Pre-Anesthetic Assessment: Date of Surgery/Procedure: 03/21/21 Preop Lizz gnosis: Incontinence Proposed Procedure: Operation Date: 03/21/21 10:20 Proposed Procedures p Midurethral singel incision sling [id number] N39.46 N81.6(Not Applicable) - Virgilio Cintron MD s Posterior Repair Posterior Colporrhaphy(Not Applicable) - Virgilio Cintron MD Any changes to Pre-Anesthetic Assessment?: No Last Intake: Intake Last Liquid Date 03/20/21 Last Liquid Time 23:00 Last Solid Date 03/20/21 Last Solid Time 23:00 Labs Last 48hrs: Laboratory Results - last 48 hr 03/19/21 03/19/21 11:37 Unknown WBC 9.2 RBC 4.70 Hgb 13.7 Hct 41.5 MCV 88.3 MCH 29.1 MCHC 33.0 RDW 13.0 Plt Count 262 MPV 9.1 Neut % (Auto) 64.4 Lymph % (Auto) 26.6 [place] % (Auto) 5.9 Eos % (Auto) 2.2 Baso % (Auto) 0.5 Neut # (Auto) 5.93 Lymph # (Auto) 2.5 [place] # (Auto) 0.5 Eos # (Auto) 0.2 Baso # (Auto) 0.1 Nucleated RBC % (a uto) 0 Nucleated RBCs # 0.0 Sodium 139 Potassium 3.7 Chloride 100 Carbon Dioxide 28 Anion Gap 14.7 BUN 13 Creatinine 0.8 GFR Calculation 71.1 L Glucose 94 Calculated Osmolal ity 288 Calcium 9.9 Vitals: Temperature 97.8 F 03/21/21 09:00 Temperature Source Temporal Artery S can 03/21/21 09:00 Pulse Rate 79 03/21/21 09:00 Pulse Rhythm 03/21/21 09:00 Pulse Strength 3+ Normal 03/21/21 09:00 Respiratory Rate 18 03/21/21 09:00 Blood Pressure 157/90 03/21/21 09:00 Blood Pressure Sanjana n 112 03/21/21 09:00 Pulse Oximetry 95 03/21/21 09:00 Oxygen Delivery Me thod 03/21/21 09:00 Exam: Pre-Anes Outpt Exam: alert, oriented x 3, clear to auscultation bilaterally and regular rate & rhythm Cardiac Studies: No Data to Display
--- NOTE | 2021-03-21 11:58 | W.PM.OPSUD ---
Surgery/Procedure H&P Update DATE OF PROCEDURE: March 21, 2021 DATE H&P PERFORMED: 03/19/21 H&P UPDATE INFORMATION: I have reviewed H&P completed within last 30 days, I have examined patient prior to procedure and No changes to prior documentation PREOP DIAGNOSIS: Incontinence PLANNED PROCEDURE: Operation Date: 03/21/21 10:20 Proposed Procedures p Midurethral singel incision sling [id number] N39.46 N81.6(Not Applicable) - Virgilio Cintron MD s Posterior Repair Posterior Colporrhaphy(Not Applicable) - Virgilio Cintron MD
[2021-03-21] MEDS: estrogens Conjugated Cream 30 gm 1 APPLIC VAGINAL (13:31)
--- NOTE | 2021-03-21 14:08 | P.OP_ITS ---
Operative Report Date of procedure: March 21, 2021 Pre-op Diagnosis: Incontinence and rectocele satge 3 Post-op diagnosis: same Procedure Done: Single incision mid urethral sling. Posterior colporrhaphy. Cystoscopy Pathology: none sent Surgeon: Virgilio Cintron MD Anesthesia: General Estimated blood loss (mL): 10 IV fluids (mL): 500 Urine output (mL): 300 Findings: Rectocele stage III Condition: stable Disposition: PACU Procedure: After obtaining informed consent, the patient was taken to the operating room and placed in the supine position, given general anesthesia, and prepped and draped in sterile fashion. The abdomen, vulva and vagina were prepped and draped in a sterile manner. A time out procedure was performed. The anterior vaginal mucosa beneath the midurethra was infiltrated with 0.5% Marcaine with epinephrine. A vertical midline incision was made beneath the midurethra, nearly 1.5 cm length. Careful submucosal dissection was performed bilaterally up to the interior portion of the inferior pubic ramus. Previous sling difficult to indenfied within the scar tissue. The insertion of adductor longus tendon on the patient?s pubic ramus was identified as reference land eusebia. Palpated the notch along the internal edge of ischiopubic ramus where the adductor longus tendon and the inferior pubic ramus meet. The Altis single incision sling (SIS) was selected. With thin porcine graft the mesh of the sling was lined anteriorly and posteriorly with the graft. Then the needle of the SIS inserted aiming at the location of this notch. One of the integrated self- fixating tips place onto the needle by sliding it over the end of the needle. The needle/sling assembly was inserted toward the location of identified reference notch making sure that the flat of the handle is perpendicular to the desired path. The needle was tracked along the posterior surface of the ischiopubic ramus until the midline eusebia on the mesh is approximately at the midline position under the urethra. The needle was removed and the same was repeated on the contralateral side until the appropriate sling tension under the urethra was achieved ensuring that the mesh lays flat. The needle was removed and vaginal incision was closed in a running interlocking fashion with 2-0 Vicryl. Posterior colpoperineorrhaphy was performed with Allis clamps to grasp hymenal caruncles to allow 2-3 fingerbreadths caliber; infiltrated with 1% Lidocaine with epinephrine before triangular incision to excise fibrotic subdermal rectovaginal tissue from old perineal laceration. Fascia dissected off towards vaginal cuff and deemed weakened and thinned-out in midline; colporrhaphy performed with interrupted mattress 0-Vicryl sutures towards perin eal body after a separate crown stitch with 0-Vicryl performed. Field irrigated; hemostasis secured before vaginal incision closed running-locked with 3-0 Vicryl. Then the Francis catheter was removed and cystoscope was inserted. The bladder was filled with sterile water. Complete evaluation of the bladder mucosa was performed noting no lacerations, dimpling, tears, bleeding of the mucosa or mu scular layers. Both ureteral orifices were identified. Prompt excretion of urine from both ureteral orifices was noted. Cystoscope was withdrawn. The Francis catheter was replaced. Excellent hemostasis was obtained. A vaginal pack is placed overnight as postoperative support for the vaginal tissues after graft placement and closure of vaginal incisions. Sponge, lap, needle, and instrument counts were correct times three. The patient was taken to the recovery room, awake and in stable condition.
[2021-03-21] MEDS: fentaNYL 50 mcg/mL INJ 2mL IVP (14:26)
[2021-03-21] MEDS: HYDROcodone-acetaminophen 5-325 mg Tablet PO ×2 (15:30→21:06)
[2021-03-21] MEDS: ketorolac 30 mg/mL INJ IVP ×2 (15:30→21:06)
[2021-03-21] MEDS: dextrose 5%-lactated ringers 1,000 ML 125 ML IV (17:02)
[2021-03-21] MEDS: hydroCHLOROthiazide 25 mg Tablet PO (17:02)
--- NOTE | 2021-03-21 17:24 | ANE.PACU2 ---
Inpatient post-anesthesia follow up: Airway intact: Yes Vital signs: Temperature 98.6 F Pulse Rate 81 Respiratory Rate 18 Blood Pressure 139/86 Pulse Oximetry 94 Oxygen Delivery Me thod Room Air Oxygen Flow Rate 8 Fraction of Inspir ed Oxygen Hydration adequate: Yes Nausea and vomiting: No Pain level: 2 Mental status: Baseline
[2021-03-21] MEDS: potassium chloride ER 20 mEq Tablet PO (19:56)
[2021-03-21] MEDS: docusate sodium 100 mg Capsule PO (19:57)
[2021-03-21] MEDS: atorvastatin 40 mg Tablet PO (21:06)
[2021-03-21] MEDS: montelukast sodium 10 mg Tablet PO (21:06)
[2021-03-21] MEDS: zolpidem 5 mg Tablet 10 MG PO (21:55)
[2021-03-22] MEDS: dextrose 5%-lactated ringers 1,000 ML 125 ML IV (01:23)
[2021-03-22] MEDS: ketorolac 30 mg/mL INJ IVP (03:15)
[2021-03-22 04:05] VITALS: BP 134/71; PULSE 80; RESP 15; TEMP 36.6; O2SAT 95
[2021-03-22 04:20] LABS: Hematocrit 39.6 % (37.0-47.0); Hemoglobin 12.7 g/dL (11.5-15.3); Mean Corpuscular HGB Conc 32.1 g/dL (30.0-36.0); Mean Corpuscular Hemoglobin 28.8 pg (28.0-34.0); Mean Corpuscular Volume 89.8 fL (81-99); Mean Platelet Volume 8.8 fL (7.4-10.4); Platelet Count 234 10^3/cmm (130-400); Red Blood Count 4.41 10^6/uL (4.1-5.3); Red Cell Distribution Width 13.1 % (12.1-15.1); White Blood Count 9.9 10^3/uL (4.0-10.0)
--- NOTE | 2021-03-22 08:13 | P.DS_ITS ---
Discharge Providers [employer]SEM[employer] LEADS Date of Admission: 03/21/21 14:10 Date of Discharge: 03/22/21 Attending Provider at Admission: Virgilio Cintron MD Attending Provider at Discharge: Virgilio Cintron MD Primary Care Provider: Meng Dotson DO Reason for Visit Reason for Visit: Midurethral singel incision sling Hospital Course Hospital Course Mrs.Mrs. Vasquez 70-year-old urinary incontinence and rectocele admitted for single incision mid urethral sling and posterior colporrhaphy. The procedures were performed without complication. Overnight observation uneventful. She is afebrile and hemodynamically stable. PVR within normal limits. Tolerating diet well. This documentation was created by [employer] soup mixer software (known for inherent soup mixer error). Every effort was made to assure accuracy of soup mixer. Any obvious errors or omissions should be clarified with the author of the document. Physical Exam Narrative: EXAM NARRATIVE: GA: Alert and oriented ?3. HEENT: WNL. Heart: Regular rate and rhythm. Lungs: Clear to auscultation bilaterally. Abdomen: Bowel sounds present, nontender, AIR TRANSPORTATION PROVIDER: No bleeding. Extremities: No edema, no cyanosis, no calves pain. Urinary Catheter Management^: Francis: Cath Placed During This Visit: yes, but has since been removed by the nurse Reason for Continuing Indwelling Catheter: Decision to DC Catheter Urinary Catheter Date of Insertion: 03/21/21 Urinary Catheter Time of Insertion: 13:13 Date Urinary Catheter Removed: 03/22/21 Time Urinary Catheter Discontinued: 04:05 Discharge Data Data Completed and Pending: Pending at discharge Category Date Time Status ES surgery / GI i mages Routine Exams 03/21/21 12:27 Taken Labs from last 24 hours 03/22/21 04:15 WBC 9.9 RBC 4.41 Hgb 12.7 Hct 39.6 MCV 89.8 MCH 28.8 MCHC 32.1 RDW 13.1 Plt Count 234 MPV 8.8 Vitals: Last Vital Signs Temp 97.9 F 03/22/21 04:05 Pulse 80 03/22/21 04:05 Resp 15 03/22/21 04:05 BP 134/71 03/22/21 04:05 Pulse Ox 95 03/22/21 04:05 Discharge Plan Discharge Patient Disposition: Home Condition: Stable Prescriptions: New ibuprofen 800 mg tablet 800 mg PO TID PRN (Reason: pain) Qty: 60 RF: 0 acetaminophen 325 mg capsule 325 mg PO Q4H PRN (Reason: fever or pain) Qty: 60 RF: 0 Continued levothyroxine 75 mcg capsule 75 mcg PO DAILY RF: 0 verapamil 240 mg capsule,ext rel. pellets 24 hr 240 mg PO QDAY RF: 0 montelukast [Singulair] 10 mg tablet 10 mg PO QDAY RF: 0 potassium chloride [Klor-Con M20] 20 mEq tablet,ER particles/crystals 20 meq PO BID RF: 0 docusate sodium [Colace] 100 mg capsule 100 mg PO BID RF: 0 hydrocodone-acetaminophen 10-325 mg tablet 1 tab PO BID PRN (Reason: Pain) RF: 0 hydrochlorothiazide 25 mg tablet 25 mg PO QDAY RF: 0 Travatan Z 0.004 % drops 1 drop ophthalmic (eye) DAILY PRN (Reason: UNKNOWN) RF: 0 Eliquis 5 mg tablet 5 mg PO BID RF: 0 bupropion HCl [Wellbutrin SR] 200 mg tablet sustained-release 12 hr 200 mg PO BID Qty: 180 RF: 0 buspirone 10 mg tablet 20 mg PO TID Qty: 540 RF: 0 memantine [Namenda] 10 mg tablet 10 mg PO BID Qty: 180 RF: 0 mirtazapine [Remeron] 15 mg tablet 15 mg PO .bedtime Qty: 90 RF: 0 mirtazapine [Remeron] 30 mg tablet 30 mg PO .bedtime Qty: 90 RF: 0 trazodone 150 mg tablet 300 mg PO .bedtime Qty: 180 RF: 0 atorvastatin 40 mg tablet See Rx Instructions .ROUTE .COMPLEX Qty: 90 RF: 3 estradiol 2 mg tablet 2 mg PO DAILY 90 Days Qty: 90 RF: 0 Myrbetriq 25 mg tablet extended release 24 hr 25 mg PO DAILY 90 Days Qty: 90 RF: 0 oxybutynin chloride 5 mg tablet 5 mg PO QDAY 90 Days Qty: 90 RF: 0 tizanidine 2 mg capsule 2 mg PO Q8H PRN (Reason: muscle spasticity) Qty: 30 RF: 0 meloxicam 7.5 mg tablet 7.5 mg PO DAILY PRN (Reason: UNKNOWN) RF: 0 Discharge Orders: Discharge Order (Routine); Ordered 03/22/21 Ordered By: Virgilio Cintron Referrals: Virgilio Cintron MD [Physician] - 2 weeks Discharge Diet: Soft Mechanical Discharge Activity: Increase activity as tolerated Patient Instructions: Bladder Sling Procedures (DC), Posterior Vaginal Repair (DC), OB Abdominal Surgery - [facility], [place], OB Discharge Report, OB Laproscopic Surgery - [facility], [place], OB Food/Drug Interaction Guide, Opioid Safety Activity Restrictions/Additional Instructions: 1. Please call [facility] [place] [facility] on next working day to make your post-operative appointment in 2 weeks. 2. Please stay home until you come back to the clinic on first post-operative check up. 3. Please follow instructions on your medications CAREFULLY. 4. If you have abdominal incision, do not cover it unless dressing is necessary because of drainage. OK to shower, but avoid bath. Leave steri-strips until they fall off. If they are still on one week after surgery, you may remove them. 5. If you had vaginal surgery or vaginal repair, Dr. Cintron may instruct you to take SITZ bath. 6. Yellow, blood tinged odorous vaginal discharge is usually normal after hysterectomy or vaginal surgeries. 7. No sexual intercourse, tampons, or douches until you are completely released from the post-operative care. 8. Avoid constipation by eating right and maybe using some Metamucil or Milk of Magnesia. 9. All prescription refills are given during the working hours. Please do no wait till it runs out. Call the clinic at [phone] before your medication runs out. The clinic will get in touch with your doctor to prescribe medications if necessary. 10. Please remain within 40 mile radius from our hospital because emergencies do happen now and then during the post-operative period. 11. If you have stairs at home, take one step at a time slowly and minimize the number of trips. It helps to stay in one floor for the next few days. No lifting except what you can lift by one hand until you are released from the post-operative care. 12. Driving is discouraged until you are well healed. It may be 3-4 weeks before you feel strong enough to drive. You should be able to turn and look through the rear window without pain and you should be able to push the brake pedal very hard without pain before you drive. No fast rules, but SAFETY should be your primary concern. DO NOT drive if you are on sedating medications such as narcotics. 13. Call the clinic (during working hours) to make urgent appointment or go to the Emergency room, if any of the following occurs: i. Vaginal bleeding becomes heavy, more than a period. ii. Incision becomes red and sore, or drains pus. iii. Your temperature is over 100.4 or you have chill. iv. IV site becomes red and swollen (a little ``knot?? is usually OK) v. Persistent nausea and vomiting vi. Persistent constipation or diarrhea vii. Rash or allergic reaction to medications. Discharge Attestations ASSEM[employer]ER FLEXIBLE LEADS Time Spent in Discharge Care*: greater than 30 min Coding Level of Care Code Acute Vault Teller for Hilton Wilson
[2021-03-22 08:50] VITALS: BP 148/72; PULSE 96; RESP 18; TEMP 36.7; O2SAT 95
== END 2021-03-22 09:10 | disposition home or self-care (01) ==
LOC: OBGYN 14:29
PROVIDERS: Anesthesiology; Admitting Provider Obstetrics & Gynecology; PCP Internal Medicine; Visit Provider Obstetrics & Gynecology
PROC: (CPT 57288; principal; 2021-03-21 10:10)
PROC: (CPT 57250; 2021-03-21 10:10)
DX: N81.6 Rectocele (principal); R32 Unspecified urinary incontinence; Z23 Encounter for immunization; Z86.718 Personal history of other venous thrombosis and embolism; Z79.01 Long term (current) use of anticoagulants; I10 Essential (primary) hypertension; K21.9 Gastro-esophageal reflux disease without esophagitis; E78.5 Hyperlipidemia, unspecified; E66.01 Morbid (severe) obesity due to excess calories; Z68.41 Body mass index [BMI] 40.0-44.9, adult; F41.9 Anxiety disorder, unspecified; F03.90 Unspecified dementia, unspecified severity, without behavioral disturbance, psychotic disturbance, mood disturbance, and anxiety; I25.10 Atherosclerotic heart disease of native coronary artery without angina pectoris; E03.9 Hypothyroidism, unspecified; Z87.891 Personal history of nicotine dependence
CPT/HCPCS: 57250; 57288; 36415; 51798; 80048; 85025; 85027; 90471; 90732; 96365; C1713; G0378; J0690; J1885; J2405; J2704; J2710; J3010; J3490; J7030; Q9968

== ENCOUNTER → 2021-05-08 15:07 | Outpatient (BNVA) | payer MEDICARE, MEDICAID, SELFPAY | PROVIDERS: PCP Internal Medicine; Visit Provider Psychiatry & Neurology Psychiatry | DX: F41.1 Generalized anxiety disorder (principal); F33.2 Major depressive disorder, recurrent severe without psychotic features; F43.12 Post-traumatic stress disorder, chronic | CPT/HCPCS: 99213 ==

== ENCOUNTER 2021-05-24 11:44 | Outpatient (CLI) | payer MEDICARE, MEDICAID, SELFPAY ==
--- NOTE | 2021-05-24 11:52 | MM_ITS ---
WS: [id number] BILATERAL DIGITAL SCREENING MAMMOGRAPHY WITH CAD CLINICAL INFORMATION: SCREENING HISTORY: Screening mammogram. No current complaints. COMPARISON: September 20, 2019 TECHNIQUE: Bilateral CC and MLO views. FINDINGS: Scattered fibroglandular densities bilaterally. No suspicious focal mass, asymmetry, calcifications, or architectural distortion. No evidence of malignancy. MM/[place] [id number] IMPRESSION: BI-RADS: 1-Negative FOLLOW UP: 1 Year Follow-up Recommend return to annual screening mammography.
--- NOTE | 2021-05-24 12:35 | XR_ITS ---
WS: [id number] DEXA (DUAL ENERGY X-RAY ABSORPTIOMETRY) Bone mineral density was performed using a [email or web address] machine. HISTORY: POST MENOPAUSAL COMPARISON: None available. Lumbar spine BMD (L1-L4): 2.022 g/cm2 T score: 7.0 Z score: 7.5 Total hip BMD: Left: 1.436 g/cm2. T score: 3.4 Z score: 4.0 Right: 1.416 g/cm2. T score: 3.2 Z score: 3.8 10 year probability of a major osteoporotic fracture is 4%. XR/XR DEXA axial skeleton* [id number] IMPRESSION: NORMAL BONE MINERAL DENSITY based upon the WHO classification for females.
== END 2021-05-24 11:45 | disposition home or self-care (01) ==
LOC: RADSHAW 11:51
PROVIDERS: PCP Internal Medicine; Visit Provider Physician Assistant
DX: Z12.31 Encounter for screening mammogram for malignant neoplasm of breast (principal); Z78.0 Asymptomatic menopausal state
CPT/HCPCS: 77067; 77080

== ENCOUNTER → 2021-06-19 12:47 | Outpatient (BNVA) | payer MEDICARE, MEDICAID, SELFPAY | PROVIDERS: PCP Internal Medicine; Visit Provider Psychiatry & Neurology Psychiatry | DX: F33.2 Major depressive disorder, recurrent severe without psychotic features (principal); F43.12 Post-traumatic stress disorder, chronic; F41.1 Generalized anxiety disorder | CPT/HCPCS: 99213 ==

== ENCOUNTER → 2021-07-30 16:05 | Outpatient (BNVA) | payer MEDICARE, MEDICAID, SELFPAY | PROVIDERS: PCP Internal Medicine; Visit Provider Nurse Practitioner Family | DX: N39.46 Mixed incontinence (principal); N81.9 Female genital prolapse, unspecified | CPT/HCPCS: 81003; 87086 ==

== ENCOUNTER → 2021-07-31 15:20 | Outpatient (BNVA) | payer MEDICARE, MEDICAID, SELFPAY | PROVIDERS: PCP Internal Medicine; Visit Provider Psychiatry & Neurology Psychiatry | DX: F41.1 Generalized anxiety disorder (principal); F33.2 Major depressive disorder, recurrent severe without psychotic features; F43.12 Post-traumatic stress disorder, chronic | CPT/HCPCS: 99213 ==

== ENCOUNTER → 2021-08-23 10:24 | Outpatient (BNVA) | payer MEDICARE, MEDICAID, SELFPAY | PROVIDERS: PCP Internal Medicine; Visit Provider Urology | DX: N39.46 Mixed incontinence (principal) | CPT/HCPCS: 81003 ==

== ENCOUNTER → 2021-09-24 09:55 | Outpatient (BNVA) | payer MEDICARE, MEDICAID, SELFPAY | PROVIDERS: PCP Internal Medicine; Visit Provider Psychiatry & Neurology Psychiatry | DX: F41.1 Generalized anxiety disorder (principal); F43.12 Post-traumatic stress disorder, chronic; F33.2 Major depressive disorder, recurrent severe without psychotic features | CPT/HCPCS: 99213 ==

== ENCOUNTER → 2021-11-01 14:19 | Outpatient (BNVA) | payer MEDICARE, MEDICAID, SELFPAY | PROVIDERS: PCP Internal Medicine; Visit Provider Urology | DX: N39.46 Mixed incontinence (principal); R35.89 Other polyuria | CPT/HCPCS: 81003 ==

== ENCOUNTER → 2021-11-06 13:04 | Outpatient (BNVA) | payer MEDICARE, MEDICAID, SELFPAY | PROVIDERS: PCP Internal Medicine; Visit Provider Internal Medicine | DX: I25.10 Atherosclerotic heart disease of native coronary artery without angina pectoris (principal); I10 Essential (primary) hypertension; E78.5 Hyperlipidemia, unspecified; Z79.01 Long term (current) use of anticoagulants; Z87.891 Personal history of nicotine dependence | CPT/HCPCS: 99214 ==

== ENCOUNTER → 2021-11-20 14:57 | Outpatient (BNVA) | payer MEDICARE, MEDICAID, SELFPAY | PROVIDERS: PCP Internal Medicine; Visit Provider Psychiatry & Neurology Psychiatry | DX: F41.1 Generalized anxiety disorder (principal); F43.12 Post-traumatic stress disorder, chronic; F33.2 Major depressive disorder, recurrent severe without psychotic features; F02.80 Dementia in other diseases classified elsewhere, unspecified severity, without behavioral disturbance, psychotic disturbance, mood disturbance, and anxiety; G30.9 Alzheimer's disease, unspecified | CPT/HCPCS: 99213 ==

== ENCOUNTER → 2022-02-19 07:38 | Outpatient (BNVA) | payer MEDICARE, MEDICAID, SELFPAY | PROVIDERS: PCP Internal Medicine; Visit Provider Psychiatry & Neurology Psychiatry | DX: F43.12 Post-traumatic stress disorder, chronic (principal); F33.2 Major depressive disorder, recurrent severe without psychotic features; F41.1 Generalized anxiety disorder | CPT/HCPCS: 99213 ==

== ENCOUNTER 2022-05-01 14:12 | Oncology outpatient (recurring) (ONCR) | payer MEDICARE, MEDICAID, SELFPAY ==
[2022-05-01 16:01] LABS: Basophils % 0.5 %; Eosinophils # 0.1 10^3/uL (0.0-0.8); Eosinophils % 1.4 %; Hematocrit 39.4 % (37.0-47.0); Hemoglobin 12.9 g/dL (11.5-15.3); Lymphocytes # 2.5 10^3/uL (0.8-4.8); Lymphocytes % 28.5 %; Mean Corpuscular HGB Conc 32.7 g/dL (30.0-36.0); Mean Corpuscular Hemoglobin 29.3 pg (28.0-34.0); Mean Corpuscular Volume 89.5 fl (81-99); Mean Platelet Volume 8.9 fL (7.4-10.4); Monocytes # 0.7 10^3/uL (0.2-0.9); Monocytes % 7.8 %; Neutrophils # 5.39 10^3/uL (1.8-7.7); Neutrophils % 61.3 %; Nucleated Red Blood Cells % 0 %; Platelet Count 231 10^3/cmm (130-400); Red Cell Distribution Width 13.3 % (12.1-15.1); White Blood Count 8.8 10^3/uL (4.0-10.0)
[2022-05-01 16:03] LABS: Erythrocyte Sedimentation Rate 9 mm/hr (0-15)
[2022-05-01 16:36] LABS: Alanine Aminotransferase 12 U/L (0-33); Alkaline Phosphatase 103 U/L (35-105); Anion Gap 13.9 (5-19); Aspartate Amino Transferase 18 U/L (0-32); Blood Urea Nitrogen 14 mg/dL (8-23); Calcium 9.7 mg/dL (8.5-10.5); Carbon Dioxide 28 mmol/L (22-29); Chloride 99 mmol/L (98-107); Globulin 2.8 g/dL (1.3-4.6); Glomerular Filtration Rate 61.9 mL/min (90-130); Glucose 99 mg/dL (65-115); Immunoglobulin IGA 320 mg/dL (70-400); Immunoglobulin IGG 1120 mg/dL (700-1600); Immunoglobulin IGM 67 mg/dL (40-230); Osmolality Calculated 285 mOsm/kg (285-295); Potassium 3.9 mmol/L (3.5-5.1); Sodium 137 mmol/L (136-145); Total Bilirubin 0.2 mg/dL (0.15-1.2); Total Protein 6.8 g/dL (6.6-8.7)
[2022-05-02 07:14] LABS: PROTEIN, TOTAL 6.9 g/dL (6.1-8.1)
[2022-05-02 12:37] LABS: KAPPA LIGHT CHAIN, FREE, SERUM 24.6 mg/L (3.3-19.4); KAPPA/LAMBDA LIGHT CHAINS FREE 1.24 (0.26-1.65); LAMBDA LIGHT CHAIN, FREE, SERU 19.8 mg/L (5.7-26.3)
[2022-05-02 15:36] LABS: ALBUMIN 3.7 g/dL (3.8-4.8); ALPHA 1 GLOBULIN 0.3 g/dL (0.2-0.3); ALPHA 2 GLOBULIN 0.8 g/dL (0.5-0.9); BETA 1 GLOBULIN 0.5 g/dL (0.4-0.6); BETA 2 GLOBULIN 0.5 g/dL (0.2-0.5); GAMMA GLOBULIN 1.1 g/dL (0.8-1.7)
== END 2022-05-01 23:59 | disposition home or self-care (01) ==
PROVIDERS: PCP Internal Medicine; Visit Provider Internal Medicine Medical Oncology
DX: D47.2 Monoclonal gammopathy (principal); E83.52 Hypercalcemia
CPT/HCPCS: 80053; 82784; 83883; 84155; 84165; 85025; 85651; 86334; 99204

== ENCOUNTER 2022-05-07 12:55 | Oncology outpatient (recurring) (ONCR) | payer MEDICARE, MEDICAID, SELFPAY ==
[2022-05-08 11:43] LABS: CREATININE, 24 HOUR URINE 0.49 g/24 h (0.50-2.15); PROTEIN, TOTAL, 24 HR UR 52 mg/24 h (<150); Protein/Creatinine Ratio 0.105 (<0.150); Protein/Creatinine Ratio 105 mg/g creat (<150)
[2022-05-09 13:14] LABS: ALBUMIN 100 %; ALPHA-1-GLOBULINS 0 %; ALPHA-2-GLOBULINS 0 %; BETA GLOBULINS 0 %; GAMMA GLOBULINS 0 %
== END 2022-05-31 23:59 | disposition home or self-care (01) ==
PROVIDERS: PCP Internal Medicine; Visit Provider Internal Medicine Medical Oncology
DX: D47.2 Monoclonal gammopathy (principal)
CPT/HCPCS: 51798; 81003; 84156; 84166; 99213

== ENCOUNTER → 2022-05-07 13:11 | Outpatient (BNVA) | payer MEDICARE, MEDICAID, SELFPAY | PROVIDERS: PCP Internal Medicine; Visit Provider Urology | DX: N39.46 Mixed incontinence (principal); Z87.440 Personal history of urinary (tract) infections; R35.89 Other polyuria | CPT/HCPCS: 51798; 99213 ==

== ENCOUNTER → 2022-05-07 13:11 | Outpatient (BNVA) | payer MEDICARE, MEDICAID, SELFPAY | PROVIDERS: PCP Internal Medicine; Visit Provider Urology | DX: N39.46 Mixed incontinence (principal); R35.89 Other polyuria; Z87.440 Personal history of urinary (tract) infections | CPT/HCPCS: 51798; 81003 ==

== ENCOUNTER → 2022-06-11 15:28 | Outpatient (BNVA) | payer MEDICARE, MEDICAID, SELFPAY | PROVIDERS: PCP Internal Medicine; Visit Provider Obstetrics & Gynecology | DX: N39.0 Urinary tract infection, site not specified (principal) | CPT/HCPCS: 81000; 87086 ==

== ENCOUNTER 2022-07-09 09:07 | Outpatient (CLI) | payer MEDICARE, MEDICAID, SELFPAY ==
--- NOTE | 2022-07-09 09:12 | MM_ITS ---
WS: [id number] Bilateral screening 3D tomosynthesis digital mammogram, 07/09/2022 Clinical Data: SCREENING Comparison: 04/23/2021, 09/20/2019, 07/22/2018, 07/04/2017, 06/27/2016, 06/28/2015, 06/30/2014, 3, 12/25/2011, 12/13/2010, 10/26/2009, 09/08/2008, 08/20/2007, 08/15/2006. Findings: The breast parenchymal pattern shows fat replacement. No spiculated masses or clustered calcification s are seen. There are no secondary signs of carcinoma. There are mole markers on the left breast. MM/[place] [id number] Impression: 1. Negative bilateral mammogram unchanged. 2. Recommend annual screening mammograms. BIRADS: 1-Negative FOLLOW UP: 1 Year Follow-up The CAD bakery products checker was used.
== END 2022-07-09 09:08 | disposition home or self-care (01) ==
PROVIDERS: PCP Internal Medicine; Visit Provider Internal Medicine
DX: Z12.31 Encounter for screening mammogram for malignant neoplasm of breast (principal)
CPT/HCPCS: 77063; 77067

== ENCOUNTER 2022-09-03 11:30 | Outpatient (CLI) | payer MEDICARE, MEDICAID, SELFPAY ==
--- NOTE | 2022-09-03 11:42 | MR_ITS ---
WS: [id number] MRI LEFT SHOULDER NONCONTRAST TECHNIQUE: Sagittal T2, coronal T1, T2 and proton density imaging. Axial gradient PDE imaging. CLINICAL INFORMATION: ROTATOR CUFF TEAR,COMPLETE,LEFT COMPARISON: None. FINDINGS: Moderate degenerative arthritis AC joint with mild downsloping acromion. Small amount of subacromial subdeltoid fluid. Impingement on the distal supraspinatus. High-grade full-thickness tear involving t he distal supraspinatus with tendon retraction measuring approximately 1.4 CM. Fluid-filled tendon ga p. Tendinopathy in the infraspinatus. Small intrasubstance tear in the infraspinatus distally. Normal teres minor. Subscapularis tendon appears intact. Normal biceps tendon in the bicipital groove . Normal biceps labral anchor. Degenerative fraying of the glenoid labrum. Subcoracoid effusion. Smal l joint effusion. MR/MR shoulder LT wo con* [id number] IMPRESSION: 1. Moderate degenerative arthritis at the AC joint with impingement on the dis rick supraspinatus. 2. Full-thickness tear involving the distal supraspinatus with 1.4 cm of tendo n retraction. Fluid-filled tendon gap. 3. Tendinopathy in the infraspinatus with a tiny intrasubstance tear. 4. Rotator cuff is otherwise intact. 5. Biceps tendon appears intact within the bicipital groove. 6. Biceps labral anchor appears intact.
== END 2022-09-03 11:31 | disposition home or self-care (01) ==
LOC: RAD 11:31
PROVIDERS: PCP Internal Medicine; Visit Provider Orthopaedic Surgery
DX: M75.122 Complete rotator cuff tear or rupture of left shoulder, not specified as traumatic (principal); M19.012 Primary osteoarthritis, left shoulder; M75.102 Unspecified rotator cuff tear or rupture of left shoulder, not specified as traumatic
CPT/HCPCS: 73221

== ENCOUNTER 2022-09-21 14:52 | Emergency (ER) | payer MEDICARE, MEDICAID, SELFPAY ==
[2022-09-21] VITALS (8 sets, daily range): BP systolic 130–153; BP diastolic 81–101; PULSE 73–86; RESP 16–20; TEMP 36.9; O2SAT 88–96
--- NOTE | 2022-09-21 19:24 | CTR_ITS ---
PROCEDURE INFORMATION: Exam: CT Abdomen And Pelvis Without Contrast Exam date and time: 09/21/2022 8:42 PM Age: 71 years old Clinical indication: Abdominal pain; Epigastric; Prior surgery; Surgery date: 6+ months; Surgery type: Bladder surgergy, hysterectomy; Patient HX: Epigastic and pelvic pain, severe low back pain; Additional info: Epigastric pain, HX of red stool TECHNIQUE: Imaging protocol: Computed tomography of the abdomen and pelvis without contrast. Radiation optimization: All CT scans at this facility use at least one of these dose optimization techniques: automated exposure control; mA and/or kV adjustment per patient size (includes targeted exams where dose is matched to clinical indication); or iterative reconstruction. COMPARISON: CT abdomen pelvis wo con [id number] 02/10/2016 3:07 PM RADIATION DOSE METRICS: Total DLP (mGy-cm): 1050.31 FINDINGS: Lungs: There is a benign calcified granuloma in the left lower lobe. Liver: The liver is normal. Gallbladder and bile ducts: The gallbladder is normal. There is no biliary dilation. Pancreas: There is mild atrophy of the pancreas. Spleen: Splenic size is normal. There are scattered calcifications consistent with healed granulomas. Adrenal glands: The adrenal glands are unremarkable. Kidneys and ureters: There is a simple cyst in the left kidney. There is no hydronephrosis or stones. The right kidney and ureter are unremarkable. Stomach and bowel: The stomach is decompressed, preventing meaningful evaluation of wall thickness. The small bowel is nondilated. The ascending and transverse colon is normal. There is mild diffuse pericolonic edema along the descending colon. There is mild distal descending and sigmoid colonic diverticulosis without evidence of diverticulitis. Appendix: The appendix is not visible. Intraperitoneal space: There is no free air or significant intraperitoneal free fluid. Vasculature: There is mild aortic atherosclerotic disease. No portal venous gas. Lymph nodes: There is no lymphadenopathy in the retroperitoneum, mesentery, pelvis or inguinal regions. Urinary bladder: The urinary bladder is unremarkable. Reproductive: The uterus is absent. There is no adnexal mass or large cyst. Bones/joints: There is moderate degenerative disease in the lumbar spine. The pelvis and hips are unremarkable. Soft tissues: The abdominal wall is intact. CT/CT abdomen pelvis wo con [id number] IMPRESSION: 1. Descending colitis. Possible infection or inflammatory bowel disease. Ischemia is not excluded. No sign of bowel necrosis. 2. Incidental findings above. COMMENTS: Consistent with the [employer]'s Incidental Findings Committee white paper (J Am Pretty Radiol 2018): Any incidental renal lesion less than 1 cm or classified as too small to characterize, or any incidental cystic renal lesion characterized as simple-appearing, is likely benign. No follow-up imaging is recommended for these lesions per consensus recommendations based on imaging criteria.
--- NOTE | 2022-09-21 19:26 | W.ED.ABDPA2 ---
HPI - Abdominal Pain General: Chief Complaint: Abdominal Pain Stated Complaint: abd pain, bloody stool Time Seen by Provider: 09/21/22 19:06 Source: patient History of Present Illness: 71-year-old female presenting with epigastric pain radiating to her back. She has had this for 2 days she says. No shortness of breath. She has had some diarrhea, with some red blood in the stool she says. No real passage of clots. No emesis. No fever. Only belly surgery history is a hysterectomy. She has not had this problem before MD elicited complaint: abdominal pain Pertinent past history: none Onset (ago): day(s) Pain Consistency: constant Location: Epigastric Radiation: back Migration to: no migration Exacerbating factors: movement Relieving factors: nothing Associated Symptoms: Reports diarrhea, hematochezia and loose stools; Denies belching, bloating, dysuria, fever(s), hematuria, hematemesis, melena and vomiting Review of Systems Const: Denies: fever(s) ENMT: Denies: throat pain Card: Denies: chest pain Resp: Denies: dyspnea, productive cough or non-productive cough GI: Reports: diarrhea and hematochezia; Denies: vomiting, hematemesis, bloating, belching or melena : Denies: dysuria or hematuria Musc: Reports: back pain PFS ED PFSH: Medical History CAD (coronary artery disease) Chronic post-traumatic stress disorder Degenerative arthritis Degenerative joint disease of spine Dyslipidemia History of deep vein thrombosis (DVT) of lower extremity History of pericarditis Hypertension Hypothyroid Major depressive disorder, recurrent severe without psychotic features Obesity Overactive bladder Postmenopausal HRT (hormone replacement therapy) 12/06/2015. Stopped Prempro. New Rx: Estradiol 1 mg daily. #45. NR. 01/09/2016. Estradiol 1mg well tolerated. Renewal verbal Rx by Dr. Lala. 03/07/2016. Poor symptom control. New Rx: Estradiol 2 mg daily. 03/28/2016. Poor symptom control. New Rx: Premarin. 04/29/2016. Refill provided for Premarin 1.25mg, well tolerated. - Happy with estrogen. Feels the benefits outweigh the risk. Refills provided Psychiatric care Sleep apnea Vaginal vault prolapse, posthysterectomy Surgical History History of bladder surgery (07/19/09) History of hysterectomy TV[facility], Anterior Repair with Mesh, Transobturator Suburethral Sling, Cystoscopy. Indication: Uterine prolapse, cystocele, stress urinary incontinence. [facility] [place], Dr. Adalberto Harris. History of tonsillectomy Hx of removal of cyst From left wrist Status post surgery TOSS Family History Unknown Thyroid condition Patient denies medical problems Denies family history of: breast/ovarian/colon cancer Family/Other Thyroid condition Cousin Uterine cancer Aunt Grandmother Stroke Sister Diabetes Father , IN HIS 40'S Automobile accident Mother , AT AGE 68 Lung disease Other Chronic post-traumatic stress disorder Social History Smoking and tobacco status: former smoker Quit status (tobacco): has quit using tobacco Year quit tobacco: 1999 Second hand smoke exposure: No Smoking risk assessment/counseling performed?: No Alcohol intake: former Desire information about alcohol rehabilitation?: No Counseling given: No Desire information about substance/drug rehabilitation?: No Counseling given: No Marital status: Current occupational status: retired History of recent travel: No Physical Exam Const: COMMON NORMALS: no acute distress GENERAL APPEARANCE: cooperative; not ill appearing and not frail appearing HENMT: COMMON NORMALS: normocephalic, atraumatic and Normal external nose present HEAD & SCALP: normocephalic and atraumatic FACE & SINUS: normal facial exam and face symmetric NOSE: Normal external nose present Eye: COMMON NORMALS: Equal, round and reactive pupils present and EOMs intact bilaterally PUPIL: Yes Equal, round and reactive pupils present Neck/C-Spine: GENERAL: Yes trachea midline Chest: CHEST: Yes Symmetrical chest wall rise Resp: COMMON NORMALS: normal respiratory effort, No retractions, No use of accessory muscles and clear to auscultation bilaterally AUSCULTATION: clear to auscultation bilaterally Cardio: COMMON NORMALS: regular rate and regular rhythm RATE: regular rate RHYTHM: regular rhythm GI: COMMON NORMALS: Normal to inspection, nondistended, normoactive bowel sounds present PALPATION: Yes Tenderness to palpation present (GI) (epigastric) and Yes Guarding due to palpation present (GI) Extremity: COMMON NORMALS: no pedal edema Neuro: LINO COMA SCALE: document GCS findings [place] coma scale eye opening: Spontaneous [place] coma scale verbal response: Orientated Lino coma scale motor response: Obey commands Lino coma scale total score: 15 SENSORY EXAM: Yes extremities (intact) Psych: COMMON NORMALS: speech normal SPEECH: Yes normal speech Skin: COMMON NORMALS: no rashes or lesions noted GENERAL SKIN EXAM: no rashes or lesions noted Course Vital Signs: Vital signs: Vital Signs Temperature 98.4 F 09/21/22 15:03 Pulse Rate 86 09/21/22 22:15 Respiratory Rate 18 09/21/22 22:15 Blood Pressure 148/81 09/21/22 22:15 Pulse Oximetry 95 09/21/22 22:15 Oxygen Delivery Me thod 09/21/22 21:30 MDM - Abdominal Pain Medical Decision Making 71-year-old female with abdominal pain and diarrhea. Hemoglobin is 13.5. White blood cell count is 11.7. CT shows descending colitis, likely infectious. She will be treated with antibiotics. She knows to return for any worsening symptoms despite treatment. She wishes to go home. Since she is not vomiting, a trial at home is appropriate. Lab Data 09/21/22 19:17 09/21/22 19:17 Labs/Radiology: Radiology Impressions Abdomen/Pelvis CT 09/21/22 19:24 IMPRESSION: 1. Descending colitis. Possible infection or inflammatory bowel disease. Ischemia is not excluded. No sign of bowel necrosis. 2. Incidental findings above. COMMENTS: Consistent with the [employer]'s Incidental Findings Committee white paper (J Am Pretty Radiol 2018): Any incidental renal lesion less than 1 cm or classified as too small to characterize, or any incidental cystic renal lesion characterized as simple-appearing, is likely benign. No follow-up imaging is recommended for these lesions per consensus recommendations based on imaging criteria. Laboratory Results WBC 11.7 10^3/uL (4.0-10.0) H 09/21/22 19:17 RBC 4.70 10^6/uL (4.1-5.3) 09/21/22 19:17 Hgb 13.5 g/dL (11.5-15.3) 09/21/22 19:17 Hct 41.8 % (37.0-47.0) 09/21/22 19:17 MCV 88.9 fl (81-99) 09/21/22 19:17 MCH 28.7 pg (28.0-34.0) 09/21/22 19:17 MCHC 32.3 g/dL (30.0-36.0) 09/21/22 19:17 RDW 13.0 % (12.1-15.1) 09/21/22 19:17 Plt Count 239 10^3/cmm (130-400) 09/21/22 19:17 MPV 9.4 fL (7.4-10.4) 09/21/22 19:17 Neut % (Auto) 63.3 % 09/21/22 19:17 Lymph % (Auto) 27.7 % 09/21/22 19:17 [place] % (Auto) 6.4 % 09/21/22 19:17 Eos % (Auto) 1.8 % 09/21/22 19:17 Baso % (Auto) 0.5 % 09/21/22 19:17 Neut # (Auto) 7.39 10^3/uL (1.8-7.7) 09/21/22 19:17 Lymph # (Auto) 3.2 10^3/uL (0.8-4.8) 09/21/22 19:17 [place] # (Auto) 0.8 10^3/uL (0.2-0.9) 09/21/22 19:17 Eos # (Auto) 0.2 10^3/uL (0.0-0.8) 09/21/22 19:17 Baso # (Auto) 0.1 10^3/uL (0.0-0.1) 09/21/22 19:17 Nucleated RBC % (auto) 0 % 09/21/22 19:17 Nucleated RBCs # 0.0 /100WBC 09/21/22 19:17 PT 13.20 SECONDS (12.1-14.9) 09/21/22 19:17 INR 0.97 (0.8-1.2) 09/21/22 19:17 APTT 25.9 SECONDS (23.9-36.7) 09/21/22 19:17 Sodium 140 mmol/L (136-145) 09/21/22 19:17 Potassium 3.7 mmol/L (3.5-5.1) 09/21/22 19:17 Chloride 101 mmol/L (98-107) 09/21/22 19:17 Carbon Dioxide 29 mmol/L (22-29) 09/21/22 19:17 Anion Gap 13.7 (5-19) 09/21/22 19:17 BUN 13 mg/dL (8-23) 09/21/22 19:17 Creatinine 0.9 mg/dL (0.5-0.9) 09/21/22 19:17 GFR Calculation 61.9 mL/min (90-130) L 09/21/22 19:17 Glucose 83 mg/dL (65-115) 09/21/22 19:17 Calculated Osmolality 289 mOsm/kg (285-295) 09/21/22 19:17 Calcium 9.7 mg/dL (8.5-10.5) 09/21/22 19:17 Total Bilirubin 0.2 mg/dL (0.15-1.2) 09/21/22 19:17 AST 23 U/L (0-32) 09/21/22 19:17 ALT 15 U/L (0-33) 09/21/22 19:17 Alkaline Phosphatase 116 U/L (35-105) H 09/21/22 19:17 Total Protein 7.9 g/dL (6.6-8.7) 09/21/22 19:17 Albumin 4.1 g/dL (3.5-5.2) 09/21/22 19:17 Globulin 3.8 g/dL (1.3-4.6) 09/21/22 19:17 Lipase 22 U/L (13-60) 09/21/22 19:17 Urine Color Yellow (Yellow) 09/21/22 19:52 Urine Appearance Clear (CLEAR) 09/21/22 19:52 Urine pH 6.5 (5-7) 09/21/22 19:52 Ur Specific [place] 1.015 (1.005-1.030) 09/21/22 19:52 Urine Protein Neg (Negative) 09/21/22 19:52 Urine Glucose (UA) Norm (Normal) 09/21/22 19:52 Urine Ketones Negative (Negative) 09/21/22 19:52 Urine Blood Neg (Negative) 09/21/22 19:52 Urine Nitrate Negative (Negative) 09/21/22 19:52 Urine Bilirubin Neg (Negative) 09/21/22 19:52 Urine Urobilinogen Neg mg/dL (Negative) 09/21/22 19:52 Ur Leukocyte Esterase Negative (Negative) 09/21/22 19:52 Blood Type AB Positive 09/21/22 19:17 Rho(D) Type Positive 09/21/22 19:17 Antibody Screen Negative 09/21/22 19:17 Discharge Plan Discharge Patient Disposition: Home Clinical Impression: Colitis Condition: Stable Prescriptions: New ciprofloxacin HCl 500 mg tablet 500 mg PO Q12H Qty: 14 0RF metronidazole 500 mg tablet 500 mg PO Q8H 7 Days Qty: 21 0RF ondansetron 4 mg film 4 mg PO DAILY PRN (Reason: nausea and vomiting) Qty: 10 0RF Continued hydrocodone-acetaminophen 10-325 mg tablet 1 tab PO BID PRN (Reason: Pain) Qty: 8 0RF Discontinued tizanidine 2 mg capsule 2 mg PO Q8H PRN (Reason: muscle spasticity) Qty: 30 0RF No Action levothyroxine 75 mcg capsule 75 mcg PO DAILY montelukast [Singulair] 10 mg tablet 10 mg PO QDAY docusate sodium [Colace] 100 mg capsule 100 mg PO BID Travatan Z 0.004 % drops 1 drop ophthalmic (eye) DAILY PRN (Reason: UNKNOWN) Eliquis 5 mg tablet 5 mg PO BID Label Comments: holding since 03/15/2021 amlodipine 5 mg tablet 5 mg PO DAILY Myrbetriq 25 mg tablet extended release 24 hr See Rx Instructions .ROUTE .COMPLEX Qty: 90 3RF Dose Instruction: TAKE 1 TABLET BY MOUTH EVERY DAY FOR MIXED URINARY INCONTINENCE Rx Instructions: TAKE 1 TABLET BY MOUTH EVERY DAY FOR MIXED URINARY INCONTINENCE oxybutynin chloride 10 mg tablet extended release 24hr 20 mg PO DAILY 90 Days Qty: 180 0RF bupropion HCl [Wellbutrin SR] 200 mg tablet sustained-release 12 hr 200 mg PO BID Qty: 180 0RF Rx Instructions: Take one tablet in morning and at 2 pm buspirone 10 mg tablet 20 mg PO TID Qty: 540 0RF Rx Instructions: 90 day supply memantine [Namenda] 10 mg tablet 10 mg PO BID Qty: 180 0RF Rx Instructions: Take one tablet twice per day mirtazapine [Remeron] 30 mg tablet 30 mg PO .bedtime Qty: 90 0RF Rx Instructions: take one tablet by mouth each bedtime with the 15 mg tablet mirtazapine [Remeron] 15 mg tablet 15 mg PO .bedtime Qty: 90 0RF Rx Instructions: Take one tablet at bedtime with 30 mg tablet for total dose of 45 mg trazodone 150 mg tablet 300 mg PO .bedtime Qty: 180 0RF Rx Instructions: Take two tablets at bedtime atorvastatin 40 mg tablet See Rx Instructions .ROUTE .COMPLEX Qty: 90 3RF Dose Instruction: TAKE 1 TABLET BY MOUTH EVERY DAY Rx Instructions: TAKE 1 TABLET BY MOUTH EVERY DAY estradiol 2 mg tablet See Rx Instructions .ROUTE .COMPLEX Qty: 90 3RF Dose Instruction: TAKE 1 TABLET BY MOUTH EVERY DAY Rx Instructions: TAKE 1 TABLET BY MOUTH EVERY DAY meloxicam 7.5 mg tablet 7.5 mg PO DAILY PRN (Reason: UNKNOWN) Rx Instructions: PT STATES SHE HAS NOT YET STARTED THIS MEDICATION. Discharge Orders: Discharge ED (Routine); Ordered 09/21/22 Ordered By: William Mendez Referrals: Meng Dotson DO [Primary Care Provider] - 1-3 days Patient Instructions: Colitis (ED), Opioid Safety, Pain Management Activity Restrictions/Additional Instructions: Antibiotics as directed. Follow a liquid diet for 24 hours, then you may add food back. Stop your tizanidine while on antibiotics. Return for worsening pain despite treatment, vomiting liquids or medications, failure to improve after 3-4 doses of antibiotics, any other concerning symptoms. Follow-up with your doctor early next week. Coding Level of Care Code ED Sawmilling Operator for Hilton Fwryan Exam Comprehensive
[2022-09-21] MEDS: morphine 4 mg/mL SDV 1 mL IVP (19:36)
[2022-09-21] MEDS: ondansetron 2 mg/ML SDV 2 mL 4 MG IVP (19:37)
[2022-09-21 19:39] LABS: Basophils # 0.1 10^3/uL (0.0-0.1); Basophils % 0.5 %; Eosinophils # 0.2 10^3/uL (0.0-0.8); Eosinophils % 1.8 %; Hematocrit 41.8 % (37.0-47.0); Hemoglobin 13.5 g/dL (11.5-15.3); Lymphocytes # 3.2 10^3/uL (0.8-4.8); Lymphocytes % 27.7 %; Mean Corpuscular HGB Conc 32.3 g/dL (30.0-36.0); Mean Corpuscular Hemoglobin 28.7 pg (28.0-34.0); Mean Corpuscular Volume 88.9 fl (81-99); Mean Platelet Volume 9.4 fL (7.4-10.4); Monocytes # 0.8 10^3/uL (0.2-0.9); Monocytes % 6.4 %; Neutrophils # 7.39 10^3/uL (1.8-7.7); Neutrophils % 63.3 %; Nucleated Red Blood Cells % 0 %; Platelet Count 239 10^3/cmm (130-400); White Blood Count 11.7 10^3/uL (4.0-10.0)
[2022-09-21 19:51] LABS: INR 0.97 (0.8-1.2)
[2022-09-21 19:52] LABS: Partial Thromboplastin Time 25.9 SECONDS (23.9-36.7)
[2022-09-21 19:56] LABS: Alanine Aminotransferase 15 U/L (0-33); Albumin Level 4.1 g/dL (3.5-5.2); Alkaline Phosphatase 116 U/L (35-105); Anion Gap 13.7 (5-19); Aspartate Amino Transferase 23 U/L (0-32); Blood Urea Nitrogen 13 mg/dL (8-23); Calcium 9.7 mg/dL (8.5-10.5); Carbon Dioxide 29 mmol/L (22-29); Chloride 101 mmol/L (98-107); Globulin 3.8 g/dL (1.3-4.6); Glomerular Filtration Rate 61.9 mL/min (90-130); Glucose 83 mg/dL (65-115); Lipase 22 U/L (13-60); Osmolality Calculated 289 mOsm/kg (285-295); Potassium 3.7 mmol/L (3.5-5.1); Sodium 140 mmol/L (136-145); Total Bilirubin 0.2 mg/dL (0.15-1.2); Total Protein 7.9 g/dL (6.6-8.7)
[2022-09-21 19:56] LABS: Add Urine Microscopic? NO; Charge for UA Resulting for Rev
[2022-09-21 19:58] LABS: Bilirubin Urine Neg (Negative); Blood Urine Neg (Negative); Glucose Urine UA Norm (Normal); Ketones Urine Negative (Negative); Leukocyte Esterase Urine Negative (Negative); Nitrate Urine Negative (Negative); Protein Urine Neg (Negative); Specific Gravity, Urine 1.015 (1.005-1.030); Urine Appearance Clear (CLEAR); Urine Color Yellow (Yellow); Urobilinogen Urine Neg (Negative); pH Urine 6.5 (5-7)
[2022-09-21] MEDS: ciprofloxacin 500 mg Tablet PO (22:13)
[2022-09-21] MEDS: metroNIDAZOLE 500 MG Tablet PO (22:14)
== END 2022-09-21 22:49 | disposition home or self-care (01) ==
PROVIDERS: Emergency Medicine; Emergency Provider Emergency Medicine; PCP Internal Medicine
DX: K52.9 Noninfective gastroenteritis and colitis, unspecified (principal); Z79.01 Long term (current) use of anticoagulants; Z87.891 Personal history of nicotine dependence; I25.10 Atherosclerotic heart disease of native coronary artery without angina pectoris; E78.5 Hyperlipidemia, unspecified; I10 Essential (primary) hypertension
CPT/HCPCS: 74176; 80053; 81003; 83690; 85025; 85610; 85730; 86850; 86900; 96374; 96375; 99285; J2270; J2405

== ENCOUNTER → 2022-11-12 13:20 | Outpatient (BNVA) | payer MEDICARE, MEDICAID, SELFPAY | PROVIDERS: PCP Internal Medicine; Visit Provider Urology | DX: R35.89 Other polyuria (principal); N39.46 Mixed incontinence | CPT/HCPCS: 51798; 99213 ==

== ENCOUNTER → 2022-12-24 16:00 | Outpatient (BNVA) | payer MEDICARE, MEDICAID, SELFPAY | PROVIDERS: PCP Internal Medicine; Visit Provider Obstetrics & Gynecology | DX: N39.0 Urinary tract infection, site not specified (principal); N39.46 Mixed incontinence | CPT/HCPCS: 87086 ==

== ENCOUNTER 2023-01-07 12:17 | Oncology outpatient (recurring) (ONCR) | payer MEDICARE, MEDICAID, SELFPAY ==
[2023-01-07 14:30] LABS: Basophils # 0.1 10^3/uL (0.0-0.1); Basophils % 0.8 %; Eosinophils # 0.2 10^3/uL (0.0-0.8); Eosinophils % 1.9 %; Hematocrit 38.8 % (37.0-47.0); Hemoglobin 12.8 g/dL (11.5-15.3); Lymphocytes # 3.1 10^3/uL (0.8-4.8); Lymphocytes % 33.7 %; Mean Corpuscular Hemoglobin 29.2 pg (28.0-34.0); Mean Corpuscular Volume 88.6 fl (81-99); Monocytes # 0.7 10^3/uL (0.2-0.9); Monocytes % 7.9 %; Neutrophils # 5.12 10^3/uL (1.8-7.7); Neutrophils % 55.4 %; Nucleated Red Blood Cells % 0 %; Platelet Count 227 10^3/cmm (130-400); Red Blood Count 4.38 10^6/uL (4.1-5.3); Red Cell Distribution Width 13.2 % (12.1-15.1); White Blood Count 9.2 10^3/uL (4.0-10.0)
[2023-01-07 15:08] LABS: Alanine Aminotransferase 8 U/L (0-33); Albumin Level 3.9 g/dL (3.5-5.2); Alkaline Phosphatase 104 U/L (35-105); Anion Gap 13.2 (5-19); Aspartate Amino Transferase 14 U/L (0-32); Blood Urea Nitrogen 17 mg/dL (8-23); Calcium 9.2 mg/dL (8.5-10.5); Carbon Dioxide 26 mmol/L (22-29); Chloride 101 mmol/L (98-107); Globulin 3.3 g/dL (1.3-4.6); Glucose 84 mg/dL (65-115); Immunoglobulin IGA 332 mg/dL (70-400); Immunoglobulin IGG 1221 mg/dL (700-1600); Immunoglobulin IGM 61 mg/dL (40-230); Osmolality Calculated 283 mOsm/kg (285-295); Potassium 4.2 mmol/L (3.5-5.1); Sodium 136 mmol/L (136-145); Thyroid Stimulating Hormone 1.88 uIU/mL (0.27-4.20); Total Bilirubin 0.2 mg/dL (0.15-1.2); Total Protein 7.2 g/dL (6.6-8.7)
[2023-01-07 15:51] LABS: Iron 50 ug/dL (37-145); Percent Saturation 15.3 % (20-50); Total Iron Binding Capacity 325 mcg/dl; Unsaturated Iron Binding 275 ug/dL (112-347)
[2023-01-07 16:08] LABS: Vitamin B12 459 pg/mL (232-1245)
[2023-01-08 13:04] LABS: PROTEIN, TOTAL 6.8 g/dL (6.1-8.1)
[2023-01-08 16:04] LABS: KAPPA LIGHT CHAIN, FREE, SERUM 33.3 mg/L (3.3-19.4); KAPPA/LAMBDA LIGHT CHAINS FREE 1.47 (0.26-1.65); LAMBDA LIGHT CHAIN, FREE, SERU 22.6 mg/L (5.7-26.3)
[2023-01-09 13:25] LABS: ALBUMIN 3.6 g/dL (3.8-4.8); ALPHA 1 GLOBULIN 0.3 g/dL (0.2-0.3); ALPHA 2 GLOBULIN 0.8 g/dL (0.5-0.9); BETA 1 GLOBULIN 0.5 g/dL (0.4-0.6); BETA 2 GLOBULIN 0.5 g/dL (0.2-0.5); GAMMA GLOBULIN 1.2 g/dL (0.8-1.7)
== END 2023-01-29 23:59 | disposition home or self-care (01) ==
PROVIDERS: PCP Internal Medicine; Visit Provider Internal Medicine Medical Oncology
DX: D47.2 Monoclonal gammopathy (principal); E83.52 Hypercalcemia; R53.83 Other fatigue; R63.0 Anorexia; Z68.41 Body mass index [BMI] 40.0-44.9, adult; K21.9 Gastro-esophageal reflux disease without esophagitis; G62.9 Polyneuropathy, unspecified; Z79.899 Other long term (current) drug therapy; Z87.891 Personal history of nicotine dependence
CPT/HCPCS: 36415; 80053; 82607; 82784; 83540; 83550; 83883; 84155; 84165; 84443; 85025; 86140; 86334; 99214

== ENCOUNTER 2023-01-14 08:43 | Outpatient (CLI) | payer MEDICARE, MEDICAID, SELFPAY ==
--- NOTE | 2023-01-14 09:14 | CT_ITS ---
WS: [id number] CT ABDOMEN AND PELVIS NONCONTRAST HISTORY: LEFT FLANK PAIN TECHNIQUE: Imaging performed through the abdomen and pelvis. Coronal and sagittal reformats are submi tted. All CT scans at [facility] use at least one of these dose optimization techniques: auto mated exposure control; mA and/or kV adjustment per patient size (includes targeted exams where dose is matched to clinical indication); or iterative reconstruction. DLP: 851.97 mGy.cm COMPARISON: 09/21/2022 Lower thorax: Benign granuloma LEFT lung base. Mild cardiomegaly. Small hiatal hernia. Liver: Mild hepatic steatosis. Scattered granulomata. Gallbladder: Normal gallbladder. No pericholecystic fluid or cholelithiasis. No gallbladder wall thic kening. Pancreas: Normal size and attenuation. Normal pancreatic duct. No pancreatitis or mass. Spleen: Granulomatous. Normal size. Adrenal glands: Normal. No mass. Right kidney: Normal size kidney with no mass or hydronephrosis. Left kidney: Normal size kidney. Area of decreased attenuation measuring 1.5 cm in the posterior mid kidney. Additional lower pole area of decreased attenuation. These cannot be further evaluated withou t IV contrast. No renal obstruction. Normal LEFT ureter. Aorta: Mild atherosclerosis abdominal aorta with no aneurysm. No free fluid, intraperitoneal air or significant lymphadenopathy. GI tract: Normal noncontrast imaging of the stomach, small bowel and colon. No obstruction or wall th ickening. Mild constipation. Normal appendix. Scattered diverticula. No evidence for acute diverticul itis. Abdominal wall: Marked thinning of the anterior abdominal wall musculature but no hernia. Pelvis: Uterus is not identified. Minimally distended urinary bladder. Osseous structures: Mild curvature lumbar spine. No destructive bone lesions. CT/CT kidney stone [id number] IMPRESSION: 1. No acute abdominal or pelvic abnormalities identified. 2. No renal obstruction or calcification. 3. Indeterminate low-attenuation areas in the LEFT kidney may be cysts or pyel onephritis. No adjacent inflammation to suggest pyelonephritis. Cannot further characterize without IV contrast. Follow-up renal ultrasound would provide nghia tional information. 4. Hysterectomy. 5. Normal appendix.
== END 2023-01-14 08:44 | disposition home or self-care (01) ==
LOC: RAD 08:48
PROVIDERS: PCP Internal Medicine; Visit Provider Physician Assistant
DX: R10.9 Unspecified abdominal pain (principal)
CPT/HCPCS: 74176

== ENCOUNTER → 2023-04-01 14:12 | Outpatient (BNVA) | payer MEDICARE, MEDICAID, SELFPAY | PROVIDERS: PCP Internal Medicine; Visit Provider Internal Medicine | DX: I25.10 Atherosclerotic heart disease of native coronary artery without angina pectoris (principal); E66.9 Obesity, unspecified; G47.30 Sleep apnea, unspecified; E78.5 Hyperlipidemia, unspecified; I10 Essential (primary) hypertension; G89.4 Chronic pain syndrome; Z79.01 Long term (current) use of anticoagulants; I82.4Z1 Acute embolism and thrombosis of unspecified deep veins of right distal lower extremity; Z87.891 Personal history of nicotine dependence | CPT/HCPCS: 99214 ==

== ENCOUNTER 2023-04-15 11:48 | Outpatient (CLI) | payer MEDICARE, MEDICAID, SELFPAY ==
--- NOTE | 2023-04-15 11:15 | USCV_ITS ---
Brii Vasquez Age: 72 Gender: F : 1950 Exam Date: 04/15/2023 12:04 Ordering Phys: Nicola Mcwilliams M.D ([email or web address]) Technologist: Exam Location: [facility] [place] Indication: chest pain BP: 128 / 72 HR: 68 Rhythm: Sinus Technical Quality: Adequate MEASUREMENTS (Male / Female) Normal Values 2D ECHO LV Diastolic Diameter PLAX 4.7 cm 4.2 - 5.9 / 3.9 - 5.3 cm LV Systolic Diameter PLAX 3.1 cm IVS Diastolic Thickness 1.4 cm 0.6 - 1.0 / 0.6 - 0.9 cm IVS Systolic Thickness 1.6 cm LVPW Diastolic Thickness 1.1 cm 0.6 - 1.0 / 0.6 - 0.9 cm LVPW Systolic Thickness 1.8 cm LVOT Diameter 2.1 cm LV Ejection Fraction 2D Teich 62.5 % LV Ejection Fraction MOD 2C 68.2 % LV Ejection Fraction 2C AL 68.4 % LA Diameter 3.2 cm IVC Diameter 1.5 cm M-MODE Aortic Annulus Diameter 3.6 cm LA Ao Ratio MM 0.8 MV E Point Septal Separation 1.6 cm DOPPLER AV Peak Velocity 117.0 cm/s LVOT Peak Velocity 85.0 cm/s AV Area Cont Eq vti 2.7 cm squared AV Area Cont Eq pk 2.4 cm squared MV Area PHT 5.0 cm squared Mitral E to A Ratio 0.8 MV E' Velocity 38.0 cm/s Mitral E to MV E' Ratio 9.4 Mitral E to LV E' Lateral Ratio 7.8 Mitral E to LV E' Septal Ratio 11.7 TR Peak Velocity 342.0 cm/s TR Peak Gradient 46.8 mmHg TV Peak E Velocity 77.0 cm/s Right Atrial Pressure 3.0 mmHg Pulmonary Artery Systolic Pressu 49.8 mmHg RV Acceleration Time 0.2 s FINDINGS Left Ventricle Left ventricle is normal in size. LV systolic function is normal with EF of 50-55%. No regional wall motion abnormalities are seen. Grade 1 disatolic dysfunction Right Ventricle Normal in size and function Right Atrium Normal in size Left Atrium Normal in size Mitral Valve Structurally normal mitral valve. Trace mitral regurgitation. Aortic Valve Structurally normal aortic valve. No significant stenosis or regurgitation. Tricuspid Valve Mild tricuspid regurgitation. RVSP is 45 to 50 mmHg. This is consistent with moderate pulmonary hypertension Pulmonic Valve Not well visualized Pericardium Normal Aorta Normal in size IVC Appears to be normal CONCLUSIONS LV systolic function is normal with EF 50 to 55%. Grade 1 diastolic dysfunction. Trace mitral regurgitation Mild tricuspid regurgitation Moderate pulmonary hypertension No comparison studies are available Nicola Mcwilliams MD (Electronically Signed) Final Date: 27 April 2023 14:23 S
== END 2023-04-15 11:49 | disposition home or self-care (01) ==
LOC: RAD 11:50
PROVIDERS: PCP Internal Medicine; Visit Provider Internal Medicine
DX: I08.1 Rheumatic disorders of both mitral and tricuspid valves (principal); R06.02 Shortness of breath; R07.9 Chest pain, unspecified
CPT/HCPCS: 93306

== ENCOUNTER → 2023-08-12 14:46 | Outpatient (BNVA) | payer MEDICARE, MEDICAID, SELFPAY | PROVIDERS: PCP Internal Medicine; Visit Provider Registered Nurse Neonatal Intensive Care | DX: R30.0 Dysuria (principal) | CPT/HCPCS: 81000; 87086 ==

== ENCOUNTER 2023-08-15 12:59 | Outpatient (CLI) | payer MEDICARE, MEDICAID, SELFPAY ==
--- NOTE | 2023-08-15 13:29 | MM_ITS ---
WS: [id number] Bilateral screening 3D tomosynthesis digital mammogram, 08/15/2023 Clinical Data: SCREEN Comparison: 07/09/2022, 05/24/2021, 09/20/2019, 07/22/2018, 07/04/2017, 06/27/2016, 06/28/2015, 4, 02/24/2013, 12/25/2011, 12/13/2010, 10/26/2009, 09/08/2008, 08/20/2007, 08/15/2006. Findings: The breast parenchymal pattern shows fat replacement. No spiculated masses or clustered calcification s are seen. There are no secondary signs of carcinoma. There is a mole marker on the left breast. Impression: 1. Negative bilateral mammogram unchanged. 2. Recommend annual screening mammograms. MM/[place] [id number] BIRADS: 1-Negative FOLLOW UP: 1 Year Follow-up The CAD checker/stocker was used.
== END 2023-08-15 13:00 | disposition home or self-care (01) ==
LOC: RAD 12:59
PROVIDERS: PCP Internal Medicine; Visit Provider Internal Medicine
DX: Z12.31 Encounter for screening mammogram for malignant neoplasm of breast (principal)
CPT/HCPCS: 77063; 77067

== ENCOUNTER 2023-08-26 13:09 | Oncology outpatient (recurring) (ONCR) | payer MEDICARE, MEDICAID, SELFPAY ==
[2023-08-26 13:30] VITALS: BP 142/89; PULSE 88; RESP 16; TEMP 36.6; O2SAT 93
[2023-08-26 13:53] LABS: Basophils % 0.4 %; Eosinophils # 0.2 10^3/uL (0.0-0.8); Eosinophils % 1.9 %; Hematocrit 40.8 % (36-47); Lymphocytes # 2.3 10^3/uL (0.8-4.8); Mean Corpuscular HGB Conc 33.6 g/dL (30-55); Mean Corpuscular Hemoglobin 29.6 pg (27-33); Mean Corpuscular Volume 88.1 fl (85-98); Mean Platelet Volume 8.7 fL (7.4-10.4); Monocytes # 0.6 10^3/uL (0.2-0.9); Monocytes % 6.7 %; Neutrophils # 6.33 10^3/uL (1.8-7.7); Neutrophils % 66.6 %; Nucleated Red Blood Cells % 0 %; Platelet Count 263 10^3/cmm (157-399); Red Blood Count 4.63 10^6/uL (3.85-5.65); Red Cell Distribution Width 12.8 % (12.1-15.1); White Blood Count 9.51 10^3/uL (3.29-11.43)
[2023-08-26 14:13] LABS: Alanine Aminotransferase 9 U/L (0-33); Albumin Level 4.2 g/dL (3.5-5.2); Alkaline Phosphatase 97 U/L (35-105); Aspartate Amino Transferase 17 U/L (0-32); Blood Urea Nitrogen 15 mg/dL (8-23); Calcium 9.7 mg/dL (8.5-10.5); Carbon Dioxide 28 mmol/L (22-29); Chloride 101 mmol/L (98-107); Ferritin 111 ng/mL (15-150); Globulin 3.4 g/dL (1.3-4.6); Glucose 96 mg/dL (65-115); Iron 71 ug/dL (37-145); Osmolality Calculated 287 mOsm/kg (285-295); Percent Saturation 25.5 % (20-50); Sodium 138 mmol/L (136-145); Total Bilirubin 0.2 mg/dL (0.15-1.2); Total Iron Binding Capacity 278 mcg/dl; Total Protein 7.6 g/dL (6.6-8.7); Unsaturated Iron Binding 207 ug/dL (112-347)
[2023-08-26 14:16] LABS: Immunoglobulin IGA 346 mg/dL (70-400); Immunoglobulin IGG 1148 mg/dL (700-1600); Immunoglobulin IGM 62 mg/dL (40-230)
[2023-08-26 15:40] LABS: Add Urine Microscopic? NO; Charge for UA Resulting for Rev
[2023-08-26 16:11] LABS: Bilirubin Urine Neg (Negative); Blood Urine Neg (Negative); Glucose Urine UA Norm (Normal); Ketones Urine Negative (Negative); Leukocyte Esterase Urine Negative (Negative); Nitrate Urine Negative (Negative); Protein Urine Neg (Negative); Urine Appearance Clear (CLEAR); Urine Color Yellow (Yellow); Urobilinogen Urine Norm (Negative); pH Urine 6 (5-7)
[2023-08-27 09:34] LABS: PROTEIN, TOTAL 7.2 g/dL (6.1-8.1)
[2023-08-27 12:50] LABS: KAPPA LIGHT CHAIN, FREE, SERUM 32.1 mg/L (3.3-19.4); KAPPA/LAMBDA LIGHT CHAINS FREE 1.67 (0.26-1.65); LAMBDA LIGHT CHAIN, FREE, SERU 19.2 mg/L (5.7-26.3)
[2023-08-28 08:59] LABS: ALBUMIN 4.1 g/dL (3.8-4.8); ALPHA 1 GLOBULIN 0.3 g/dL (0.2-0.3); ALPHA 2 GLOBULIN 0.7 g/dL (0.5-0.9); BETA 1 GLOBULIN 0.4 g/dL (0.4-0.6); BETA 2 GLOBULIN 0.5 g/dL (0.2-0.5); GAMMA GLOBULIN 1.1 g/dL (0.8-1.7)
== END 2023-08-31 23:59 | disposition home or self-care (01) ==
LOC: ONCMED 13:10
PROVIDERS: PCP Internal Medicine; Visit Provider Internal Medicine Medical Oncology
DX: D47.2 Monoclonal gammopathy (principal); R39.15 Urgency of urination; R35.0 Frequency of micturition; Z79.899 Other long term (current) drug therapy; D50.9 Iron deficiency anemia, unspecified
CPT/HCPCS: 36415; 80053; 81003; 82728; 82784; 83540; 83550; 83883; 84155; 84165; 85025; 86334; 99213

== ENCOUNTER 2023-08-29 14:52 | Outpatient (CLI) | payer MEDICARE, MEDICAID, SELFPAY ==
[2023-08-30 12:39] LABS: CREATININE, 24 HOUR URINE 0.41 g/24 h (0.50-2.15); PROTEIN, TOTAL, 24 HR UR 40 mg/24 h (<150); Protein/Creatinine Ratio 0.098 (<0.150); Protein/Creatinine Ratio 98 mg/g creat (<150)
[2023-09-04 18:26] LABS: ALBUMIN 100 %; ALPHA-1-GLOBULINS 0 %; ALPHA-2-GLOBULINS 0 %; BETA GLOBULINS 0 %; GAMMA GLOBULINS 0 %
== END 2023-08-29 14:53 | disposition home or self-care (01) ==
LOC: LAB 14:55
PROVIDERS: PCP Internal Medicine; Visit Provider Internal Medicine Medical Oncology
DX: D50.9 Iron deficiency anemia, unspecified (principal)
CPT/HCPCS: 84156; 84166

== ENCOUNTER → 2024-04-06 12:52 | Outpatient (BNVA) | payer MEDICARE, MEDICAID, SELFPAY | PROVIDERS: PCP Internal Medicine; Visit Provider Internal Medicine | DX: I25.10 Atherosclerotic heart disease of native coronary artery without angina pectoris (principal); E66.9 Obesity, unspecified; G47.30 Sleep apnea, unspecified; E78.5 Hyperlipidemia, unspecified; I10 Essential (primary) hypertension; G89.4 Chronic pain syndrome; Z79.01 Long term (current) use of anticoagulants; Z87.891 Personal history of nicotine dependence; Z86.718 Personal history of other venous thrombosis and embolism; Z68.41 Body mass index [BMI] 40.0-44.9, adult | CPT/HCPCS: 99214 ==

== ENCOUNTER → 2024-04-28 10:35 | Outpatient (BNVA) | payer MEDICARE, MEDICAID, SELFPAY | PROVIDERS: PCP Internal Medicine; Visit Provider Specialist | DX: M17.0 Bilateral primary osteoarthritis of knee (principal) | CPT/HCPCS: 73560; 73565; 99204 ==

== ENCOUNTER 2024-05-13 16:17 | Emergency (ER) | payer MEDICARE, MEDICAID, SELFPAY ==
[2024-05-13 16:20] VITALS: BP 139/79; PULSE 81; RESP 21; TEMP 36.4; O2SAT 97; BMI 38.9
--- NOTE | 2024-05-13 16:28 | CTR_ITS ---
PROCEDURE INFORMATION: Exam: CT Cervical Spine Without Contrast Exam date and time: 05/13/2024 4:53 PM Age: 73 years old Clinical indication: Injury or trauma; Additional info: Fall TECHNIQUE: Imaging protocol: Computed tomography of the cervical spine without contrast. Radiation optimization: All CT scans at this facility use at least one of these dose optimization techniques: automated exposure control; mA and/or kV adjustment per patient size (includes targeted exams where dose is matched to clinical indication); or iterative reconstruction. COMPARISON: CT head wo con* [id number] 05/13/2024 4:53 PM RADIATION DOSE METRICS: Total DLP (mGy-cm): 975 FINDINGS: Bones/joints: No evidence of acute fracture or subluxation of the cervical spine. The craniocervical junction including the atlantoaxial and atlantooccipital articulations are intact. C2-C3: Uncovertebral hypertrophy and facet arthrosis results in mild right-sided foraminal stenosis. Posterior disc protrusion results in borderline narrowing of the midline thecal sac to 9 mm in AP diameter. C3-C4: Uncovertebral hypertrophy and facet arthrosis results in moderate left-sided and mild right-sided foraminal stenosis. No central stenosis. C4-C5: Severe right-sided facet arthrosis results in moderate right-sided foraminal stenosis. No central stenosis. C5-C6: Uncovertebral hypertrophy and facet arthrosis results in moderate bilateral foraminal stenosis. Posterior disc osteophyte complex results in mild central stenosis. C6-C7: Mild uncovertebral hypertrophy and facet arthrosis without central or foraminal stenosis. C7-T1: Mild uncovertebral hypertrophy and facet arthrosis without central or foraminal stenosis. Lungs: The visualized lung apices are clear. Soft tissues: No gross soft tissue abnormality. No significant prevertebral edema. No evidence of fluid collection or hematoma. CT/CT cervical spin wo con* [id number] IMPRESSION: 1. No evidence of fracture or subluxation of the cervical spine.
--- NOTE | 2024-05-13 16:28 | XRR_ITS ---
PROCEDURE INFORMATION: Exam: XR Pelvis Exam date and time: 05/13/2024 4:31 PM Age: 73 years old Clinical indication: Injury or trauma; Fall; Blunt trauma (contusions or hematomas); Bilateral; Pelvic region TECHNIQUE: Imaging protocol: Radiologic exam of the pelvis. Views: 1 or 2 view. COMPARISON: CT kidney stone [id number] 01/14/2023 9:23 AM FINDINGS: Bones/joints: Pelvic ring and both hips are grossly intact without evidence of fracture. There are gluteal insertional trochanteric enthesophytes bilaterally. Sacrum and coccyx are partially obscured by bowel gas/stool. Soft tissues: Grossly unremarkable. XR/XR pelvis 1-2V* [id number] IMPRESSION: 1. Pelvic ring is grossly intact. If there is ongoing clinical concern, consider correlation with CT.
--- NOTE | 2024-05-13 16:28 | ED_ITS ---
HPI - General Adult General: Chief complaint: Fall Stated complaint: fall - head injury Time Seen by Provider: 05/13/24 16:21 Source: patient and EMS Mode of arrival: EMS Limitations: no limitations History of Present Illness: 73-year-old female who states that she h ad tripped and fell today at home just prior to arrival. States she had hit her head she does have a headache has some neck pain she denies any other injuries in the fall. Denies any blood thinners rates her head pain a 5 out of 10 currently. Patient also having some right- sided hip pain as well. Associated symptoms: Reports headache(s); Deny chest pain, dyspnea, nausea, rash or vomiting Related Data Home Medications Medication Instructions Recorded Confirmed docusate sodium 100 mg capsule 100 mg PO BID 09/17/19 05/02/24 (Colace) levothyroxine 75 mcg capsule 75 mcg PO DAILY 09/17/19 05/02/24 montelukast 10 mg tablet 10 mg PO QDAY 09/17/19 04/28/24 (Singulair) travoprost 0.004 % eye drops 1 drop ophthalmic (eye) DAILY PRN 09/17/19 04/28/24 (Travatan Z) UNKNOWN meloxicam 7.5 mg tablet 7.5 mg PO DAILY PRN UNKNOWN 07/11/20 04/28/24 apixaban 5 mg tablet (Eliquis) 5 mg PO BID 03/19/21 05/02/24 amlodipine 5 mg tablet 5 mg PO DAILY 11/09/21 05/02/24 Previous Rx's Medication Instructions Recorded atorvastatin 40 mg tablet See Rx Instructions .Route 10/16/20 .COMPLEX #90 tabs hydrocodone 10 mg-acetaminophen 1 tab PO BID PRN Pain #8 tabs 09/21/22 325 mg tablet sulfamethoxazole 800 1 tab PO BID 7 days #14 tabs 08/12/23 mg-trimethoprim 160 mg tablet (Bactrim DS) estradiol 2 mg tablet See Rx Instructions .Route 10/29/23 .COMPLEX #90 tabs bupropion HCl 200 mg tablet,12 hr 200 mg PO BID #180 tabs 12/16/23 sustained-release (Wellbutrin SR) buspirone 10 mg tablet 20 mg (2 x 10 mg) PO TID #540 tabs 12/16/23 memantine 10 mg tablet 10 mg PO BID #180 tabs 12/16/23 mirtazapine 15 mg tablet 15 mg PO .HS #90 tabs 12/16/23 mirtazapine 30 mg tablet (Remeron) 30 mg PO .bedtime #90 tabs 12/16/23 trazodone 150 mg tablet 300 mg (2 x 150 mg) PO .bedtime 12/16/23 #180 tabs oxybutynin chloride 10 mg See Rx Instructions .Route 02/18/24 tablet,extended release 24 hr .COMPLEX #180 tabs omeprazole 20 mg capsule,delayed See Rx Instructions .Route 04/19/24 release .COMPLEX #90 caps mirabegron 25 mg tablet,extended See Rx Instructions .Route 04/20/24 release 24 hr (Myrbetriq) .COMPLEX #30 tabs Allergies Allergy/AdvReac Type Severity Reaction Status Date / Time latex Allergy Intermediate Rash Verified 05/13/24 16:30 Iodinated Contrast Media Allergy Mild nausea Verified 05/13/24 16:30 meperidine [From Demerol] Allergy Mild nausea Verified 05/13/24 16:30 Review of Systems Const: Denies: fever(s), chills, body aches or change in appetite ENMT: Denies: throat pain or dental pain Card: Denies: chest pain Resp: Denies: dyspnea GI: Denies: abdominal pain, nausea, vomiting or diarrhea Musc: Reports: neck pain; Denies: back pain Skin/Breast: Denies: rash Neuro: Reports: headache(s) PFSH ED PFSH: Medical History Monoclonal gammopathy History of pericarditis Degenerative joint disease of spine Degenerative arthritis History of deep vein thrombosis (DVT) of lower extremity Psychiatric care CAD (coronary artery disease) Obesity Dyslipidemia Sleep apnea Chronic post-traumatic stress disorder Major depressive disorder, recurrent severe without psychotic features Postmenopausal HRT (hormone replacement therapy) 12/06/2015. Stopped Prempro. New Rx: Estradiol 1 mg daily. #45. NR. 01/09/2016. Estradiol 1mg well tolerated. Renewal verbal Rx by Dr. Lala. 03/07/2016. Poor symptom control. New Rx: Estradiol 2 mg daily. 03/28/2016. Poor symptom control. New Rx: Premarin. 04/29/2016. Refill provided for Premarin 1.25mg, well tolerated. - Happy with estrogen. Feels the benefits outweigh the risk. Refills provided Hypothyroid Hypertension Vaginal vault prolapse, posthysterectomy Overactive bladder Surgical History History of rotator cuff surgery Left shoulder Hx of removal of cyst From left wrist Status post surgery TOSS History of tonsillectomy History of bladder surgery (07/19/09) History of hysterectomy TVH, Anterior Repair with Mesh, Transobturator Suburethral Sling, Cystoscopy. Indication: Uterine prolapse, cystocele, stress urinary incontinence. [facility], Dr. Adalberto Harris. Family History Unknown Thyroid disease Patient denies medical problems Denies family history of: breast/ovarian/colon cancer Family/Other Thyroid disease Cousin Uterine cancer Aunt Grandmother Stroke Sister Diabetes Father , IN HIS 40'S Automobile accident Mother , AT AGE 68 Lung disease Other Chronic post-traumatic stress disorder Social History Smoking and tobacco/nicotine status: never used tobacco/nicotine Quit status (tobacco/nicotine): has quit using Year quit tobacco: 1999 Second hand smoke exposure: No Alcohol intake: former Substance/Drug Use: never Marital status: Current occupational status: retired Physical Exam Const: COMMON NORMALS: no acute distress, patient oriented x3 and healthy appearing HENMT: OTHER: Hematoma to forehead Eye: COMMON NORMALS: Equal, round and reactive pupils present and EOMs intact bilaterally PUPIL: Yes Equal, round and reactive pupils present Neck/C-Spine: OTHER: Currently in c-collar Chest: COMMONS NORMALS: normal inspection of the chest Resp: COMMON NORMALS: normal respiratory effort, No retractions, No use of accessory muscles and clear to auscultation bilaterally AUSCULTATION: clear to auscultation bilaterally Cardio: COMMON NORMALS: regular rate, regular rhythm and No murmurs present (Cardio) RATE: regular rate RHYTHM: regular rhythm GI: COMMON NORMALS: Normal to inspection, nondistended, normoactive bowel sounds present, Soft to palpation, non-tender and no masses PALPATION: Yes Soft to palpation Extremity: COMMON NORMALS: normal to inspection and full ROM Neuro: COMMON NORMALS: patient oriented x3, moves all extremities and no focal motor deficits Psych: COMMON NORMALS: mental status grossly normal, Normal thought process present and cooperative THOUGHT PROCESS: Normal thought process present Skin: COMMON NORMALS: no rashes or lesions noted and no wounds GENERAL SKIN EXAM: no rashes or lesions noted Course Vital Signs: Vital signs: Vital Signs Temperature 97.5 F L 05/13/24 16:20 Pulse Rate 77 05/13/24 18:16 Respiratory Rate 21 H 05/13/24 16:20 Blood Pressure 147/77 05/13/24 18:16 Pulse Oximetry 99 05/13/24 18:16 Oxygen Delivery Me thod Room Air 05/13/24 16:20 MDM - General Adult Medical Decision Making Patient presents here after a fall has a closed head injury imaging here is all normal she stable for discharge follow-up with PCP return if worsening. Medical Records I reviewed the patient's medical records. Lab Data Radiology Impressions Cervical Spine CT 05/13/24 16:28 IMPRESSION: 1. No evidence of fracture or subluxation of the cervical spine. Head CT 05/13/24 16:28 IMPRESSION: 1. No acute intracranial abnormality. Pelvis X-Ray 05/13/24 16:28 IMPRESSION: 1. Pelvic ring is grossly intact. If there is ongoing clinical concern, consider correlation with CT. Hip CT 05/13/24 16:43 IMPRESSION: 1. No evidence of fracture or subluxation. All radiology interpretation(s) finalized by discharge Discharge Plan Discharge Patient Disposition: Home Clinical Impression: Closed head injury, Fall Condition: Stable Prescriptions: No Action levothyroxine 75 mcg capsule 75 mcg PO DAILY montelukast [Singulair] 10 mg tablet 10 mg PO QDAY docusate sodium [Colace] 100 mg capsule 100 mg PO BID Travatan Z 0.004 % drops 1 drop ophthalmic (eye) DAILY PRN (Reason: UNKNOWN) Eliquis 5 mg tablet 5 mg PO BID Patient Comments: holding since 03/15/2021 amlodipine 5 mg tablet 5 mg PO DAILY bupropion HCl [Wellbutrin SR] 200 mg tablet sustained-release 12 hr 200 mg PO BID Qty: 180 1RF Rx Instructions: Take one tablet in morning and at 2 pm buspirone 10 mg tablet 20 mg PO TID Qty: 540 1RF Rx Instructions: 90 day supply memantine 10 mg tablet 10 mg PO BID Qty: 180 1RF Rx Instructions: Take one tablet twice per day mirtazapine [Remeron] 30 mg tablet 30 mg PO .bedtime Qty: 90 1RF Rx Instructions: take one tablet by mouth each bedtime with the 15 mg tablet mirtazapine 15 mg tablet 15 mg PO .HS Qty: 90 1RF Rx Instructions: Take with 30 mg for total of 45 mg HS. trazodone 150 mg tablet 300 mg PO .bedtime Qty: 180 1RF Rx Instructions: Take two tablets at bedtime sulfamethoxazole-trimethoprim [Bactrim DS] 800-160 mg tablet 1 tab PO BID 7 Days Qty: 14 0RF atorvastatin 40 mg tablet See Rx Instructions .ROUTE .COMPLEX Qty: 90 3RF Dose Instruction: TAKE 1 TABLET BY MOUTH EVERY DAY Rx Instructions: TAKE 1 TABLET BY MOUTH EVERY DAY estradiol 2 mg tablet See Rx Instructions .ROUTE .COMPLEX Qty: 90 3RF Dose Instruction: TAKE 1 TABLET BY MOUTH EVERY DAY Rx Instructions: TAKE 1 TABLET BY MOUTH EVERY DAY oxybutynin chloride 10 mg tablet extended release 24hr See Rx Instructions .ROUTE .COMPLEX Qty: 180 0RF Dose Instruction: TAKE 2 TABLETS BY MOUTH DAILY Rx Instructions: TAKE 2 TABLETS BY MOUTH DAILY omeprazole 20 mg capsule,delayed release(DR/EC) See Rx Instructions .ROUTE .COMPLEX Qty: 90 1RF Dose Instruction: TAKE 1 CAPSULE BY MOUTH EVERY DAY Rx Instructions: TAKE 1 CAPSULE BY MOUTH EVERY DAY Myrbetriq 25 mg tablet extended release 24 hr See Rx Instructions .ROUTE .COMPLEX Qty: 30 2RF Dose Instruction: TAKE 1 TABLET BY MOUTH EVERY DAY FOR MIXED URINARY INCONTINENCE Rx Instructions: TAKE 1 TABLET BY MOUTH EVERY DAY FOR MIXED URINARY INCONTINENCE meloxicam 7.5 mg tablet 7.5 mg PO DAILY PRN (Reason: UNKNOWN) Rx Instructions: PT STATES SHE HAS NOT YET STARTED THIS MEDICATION. hydrocodone-acetaminophen 10-325 mg tablet 1 tab PO BID PRN (Reason: Pain) Qty: 8 0RF Discharge Orders: Discharge ED (Routine); Ordered 05/13/24 Ordered By: Nita Wong Referrals: Meng Dotson DO [Primary Care Provider] - 4-7 days Discharge Diet: Advance as tolerated Discharge Activity: Resume usual activity Patient Instructions: Head Injury (ED) Coding Level of Care Code ED Door Hanger for [facility]
--- NOTE | 2024-05-13 16:28 | CTR_ITS ---
PROCEDURE INFORMATION: Exam: CT Head Without Contrast Exam date and time: 05/13/2024 4:53 PM Age: 73 years old Clinical indication: Injury or trauma; Additional info: Fall TECHNIQUE: Imaging protocol: Computed tomography of the head without contrast. Radiation optimization: All CT scans at this facility use at least one of these dose optimization techniques: automated exposure control; mA and/or kV adjustment per patient size (includes targeted exams where dose is matched to clinical indication); or iterative reconstruction. COMPARISON: CT head wo con* [id number] 07/11/2020 9:22 PM RADIATION DOSE METRICS: Total DLP (mGy-cm): 1104 FINDINGS: Brain: No evidence of intra-axial or extra-axial hemorrhage. No mass effect or midline shift. Cortez-white differentiation is maintained. Basilar cisterns are patent. Cerebral ventricles: No hydrocephalus. Paranasal sinuses: The visualized paranasal sinuses are well aerated. Mastoid air cells: The visualized mastoids and middle ears are clear. Bones: Calvarium is intact. No evidence of acute fracture. Soft tissues: Right forehead scalp and periorbital contusions. CT/CT head wo con* [id number] IMPRESSION: 1. No acute intracranial abnormality.
--- NOTE | 2024-05-13 16:43 | CTR_ITS ---
PROCEDURE INFORMATION: Exam: CT Right Lower Extremity, Hip Exam date and time: 05/13/2024 4:58 PM Age: 73 years old Clinical indication: Injury or trauma; Additional info: Fall TECHNIQUE: Imaging protocol: CT of the right lower extremity without contrast was performed. Exam focused on the hip. Radiation optimization: All CT scans at this facility use at least one of these dose optimization techniques: automated exposure control; mA and/or kV adjustment per patient size (includes targeted exams where dose is matched to clinical indication); or iterative reconstruction. COMPARISON: CT kidney stone [id number] 01/14/2023 9:23 AM RADIATION DOSE METRICS: Total DLP (mGy-cm): 620 FINDINGS: Bones/joints: Moderate osteoarthritis of the right hip without of fracture or subluxation. No gross evidence of hip joint effusion. Soft tissues: Grossly unremarkable. No evidence of fluid collection or hematoma. CT/CT hip RT wo con* [id number] IMPRESSION: 1. No evidence of fracture or subluxation.
[2024-05-13 18:16] VITALS: BP 147/77; PULSE 77; O2SAT 99
[2024-05-13] MEDS: HYDROcodone-acetaminophen 5-325 mg Tablet 1 TAB PO (18:33)
== END 2024-05-13 18:32 | disposition home or self-care (01) ==
PROVIDERS: Emergency Provider Emergency Medicine; PCP Internal Medicine
DX: S00.83XA Contusion of other part of head, initial encounter (principal); Z79.01 Long term (current) use of anticoagulants; Z87.891 Personal history of nicotine dependence; I25.10 Atherosclerotic heart disease of native coronary artery without angina pectoris; E78.5 Hyperlipidemia, unspecified; I10 Essential (primary) hypertension; W01.0XXA Fall on same level from slipping, tripping and stumbling without subsequent striking against object, initial encounter
CPT/HCPCS: 70450; 72125; 72170; 73700; 99284

== ENCOUNTER 2024-07-10 12:51 | Emergency (ER) | payer MEDICARE, MEDICAID, SELFPAY ==
[2024-07-10 13:15] VITALS: BP 146/86; PULSE 77; RESP 98; TEMP 36.6; O2SAT 98; BMI 37.8
--- NOTE | 2024-07-10 13:52 | CTR_ITS ---
PROCEDURE INFORMATION: Exam: CT Cervical Spine Without Contrast Exam date and time: 07/10/2024 1:57 PM Age: 73 years old Clinical indication: Neck pain; Additional info: Neck pain, right arm weakness TECHNIQUE: Imaging protocol: Computed tomography of the cervical spine without contrast. Axial, coronal and sagittal reformatted images were created and reviewed. Radiation optimization: All CT scans at this facility use at least one of these dose optimization techniques: automated exposure control; mA and/or kV adjustment per patient size (includes targeted exams where dose is matched to clinical indication); or iterative reconstruction. COMPARISON: CT cervical spin wo con* [id number] 05/13/2024 4:53 PM RADIATION DOSE METRICS: Total DLP (mGy-cm): 176.97 FINDINGS: Bones: Normal cervical lordosis. No CT evidence of acute fracture, dislocation or subluxation. Minimal anterolisthesis of C4 on C5 and retrolisthesis of C5 and C6. Alignment otherwise anatomic. Vertebral body heights maintained. Mild multilevel spondylosis without significant spinal canal or neural foraminal stenosis. Lungs: Lung apices are normal. Soft tissues: Grossly unremarkable. CT/CT cervical spin wo con* [id number] IMPRESSION: Mild multilevel spondylosis without significant spinal canal or neural foraminal stenosis.
--- NOTE | 2024-07-10 14:06 | ED_ITS ---
HPI - Neck Pain/Injury General: Chief Complaint: Neck Pain/Injury Stated Complaint: right arm pain Time Seen by Provider: 07/10/24 13:50 History of Present Illness: 73-year-old female who says that yesterd ay she started having pain in her neck that radiated down her right arm. She had difficulty raising her right arm secondary to pain. No known injury. Currently she has some slight tenderness palpation of the paraspinal muscles with no bony tenderness and no step-off. No focal motor deficits. She is able to move her arm at this time. She said it has improved some. No saddle numbness, no urinary retention or incontinence, no focal motor deficit, no sensory deficit. no recent fever. no cough. no shortness of breath. no chest pain. no abdominal pain. no nausea or vomiting. Related Data Home Medications Medication Instructions Recorded Confirmed docusate sodium 100 mg capsule 100 mg PO BID 09/17/19 07/10/24 (Colace) levothyroxine 75 mcg capsule 75 mcg PO DAILY 09/17/19 07/10/24 montelukast 10 mg tablet 10 mg PO QDAY 09/17/19 07/10/24 (Singulair) meloxicam 7.5 mg tablet 7.5 mg PO DAILY PRN UNKNOWN 07/11/20 07/10/24 apixaban 5 mg tablet (Eliquis) 5 mg PO BID 03/19/21 07/10/24 amlodipine 5 mg tablet 5 mg PO DAILY 11/09/21 07/10/24 atorvastatin 40 mg tablet 40 mg PO DAILY 07/10/24 07/10/24 estradiol 2 mg tablet 2 mg PO DAILY 07/10/24 07/10/24 latanoprost 0.005 % eye drops 1 drp ophthalmic (eye) QPM 07/10/24 07/10/24 omeprazole 20 mg capsule,delayed 20 mg PO DAILY 07/10/24 07/10/24 release oxybutynin chloride 10 mg 20 mg PO DAILY 07/10/24 07/10/24 tablet,extended release 24 hr Previous Rx's Medication Instructions Recorded hydrocodone 10 mg-acetaminophen 1 tab PO BID PRN Pain #8 tabs 09/21/22 325 mg tablet mirabegron 25 mg tablet,extended See Rx Instructions .Route 04/20/24 release 24 hr (Myrbetriq) .COMPLEX #30 tabs bupropion HCl 200 mg tablet,12 hr 200 mg PO BID #180 tabs 06/04/24 sustained-release (Wellbutrin SR) buspirone 10 mg tablet 20 mg (2 x 10 mg) PO TID #540 tabs 06/04/24 memantine 10 mg tablet 10 mg PO BID #180 tabs 06/04/24 mirtazapine 15 mg tablet 15 mg PO .HS #90 tabs 06/04/24 mirtazapine 30 mg tablet (Remeron) 30 mg PO .bedtime #90 tabs 06/04/24 trazodone 150 mg tablet 300 mg (2 x 150 mg) PO .bedtime 06/04/24 #180 tabs cyclobenzaprine 5 mg tablet 5 mg PO BEDTIME PRN muscle spasm 07/10/24 #10 tabs dexamethasone 6 mg tablet 6 mg PO DAILY 5 days #5 tabs 07/10/24 tramadol 50 mg tablet 50 mg PO Q8H PRN pain #10 tabs 07/10/24 Allergies Allergy/AdvReac Type Severity Reaction Status Date / Time latex Allergy Intermediate Rash Verified 07/10/24 13:21 Iodinated Contrast Media Allergy Mild nausea Verified 07/10/24 13:21 meperidine [From Demerol] Allergy Mild nausea Verified 07/10/24 13:21 Review of Systems Narrative: Constitutional symptoms: Negative except as documented in HPI. Skin symptoms: Negative except as documented in HPI. Eye symptoms: Negative except as documented in HPI. ENMT symptoms: Negative except as documented in HPI. Respiratory symptoms: Negative except as documented in HPI. Cardiovascular symptoms: Negative except as documented in HPI. Gastrointestinal symptoms: Negative except as documented in HPI. Genitourinary symptoms: Negative except as documented in HPI. Musculoskeletal symptoms: Negative except as documented in HPI. Neurologic symptoms: Negative except as documented in HPI. Psychiatric symptoms: Negative except as documented in HPI. Endocrine symptoms: Negative except as documented in HPI. PFSH ED PFSH: Medical History Monoclonal gammopathy History of pericarditis Degenerative joint disease of spine Degenerative arthritis History of deep vein thrombosis (DVT) of lower extremity Psychiatric care CAD (coronary artery disease) Obesity Dyslipidemia Sleep apnea Chronic post-traumatic stress disorder Major depressive disorder, recurrent severe without psychotic features Postmenopausal HRT (hormone replacement therapy) 12/06/2015. Stopped Prempro. New Rx: Estradiol 1 mg daily. #45. NR. 01/09/2016. Estradiol 1mg well tolerated. Renewal verbal Rx by Dr. Lala. 03/07/2016. Poor symptom control. New Rx: Estradiol 2 mg daily. 03/28/2016. Poor symptom control. New Rx: Premarin. 04/29/2016. Refill provided for Premarin 1.25mg, well tolerated. - Happy with estrogen. Feels the benefits outweigh the risk. Refills provided Hypothyroid Hypertension Vaginal vault prolapse, posthysterectomy Overactive bladder Surgical History History of rotator cuff surgery Left shoulder Hx of removal of cyst From left wrist Status post surgery TOSS History of tonsillectomy History of bladder surgery (07/19/09) History of hysterectomy TVH, Anterior Repair with Mesh, Transobturator Suburethral Sling, Cystoscopy. Indication: Uterine prolapse, cystocele, stress urinary incontinence. [facility] [place], Dr. Adalberto Harris. Family History Unknown Thyroid disease Patient denies medical problems Denies family history of: breast/ovarian/colon cancer Family/Other Thyroid disease Cousin Uterine cancer Aunt Grandmother Stroke Sister Diabetes Father , IN HIS 40'S Automobile accident Mother , AT AGE 68 Lung disease Other Chronic post-traumatic stress disorder Social History Smoking and tobacco/nicotine status: never used tobacco/nicotine Quit status (tobacco/nicotine): has quit using Year quit tobacco: 1999 Second hand smoke exposure: No Alcohol intake: former Substance/Drug Use: never Marital status: Current occupational status: retired Physical Exam Narrative: EXAM NARRATIVE: General: Alert, no acute distress. Skin: warm and dry Head: Normocephalic Neck: Trachea midline, no bony tenderness. No step-offs. Some right-sided paraspinal muscle tenderness to palpation Eye: Extraocular movements are intact. Ears, nose, mouth and throat: Oral mucosa moist Respiratory: Respirations are non-labored Musculoskeletal: Normal ROM Neurological: Alert and oriented, No focal neurological deficit observed. Psychiatric: Cooperative, appropriate mood & affect. Course Vital Signs: Vital signs: Vital Signs Temperature 97.8 F 07/10/24 13:15 Pulse Rate 77 07/10/24 13:15 Respiratory Rate 98 H 07/10/24 13:15 Blood Pressure 146/86 07/10/24 13:15 Pulse Oximetry 98 07/10/24 13:15 Oxygen Delivery Me thod Room Air 07/10/24 13:15 MDM - Neck Pain/Injury Medical Decision Making CT of the cervical spine: No fracture. Good alignment. No step-offs. This was reviewed and interpreted by myself the emergency room physician. I also reviewed the radiologist report. Assessment and plan: Cervical radiculopathy ?Decadron, [place] and Toradol in the emergency room - Discharged home - Discussed plan with patient. Answered any questions. - Evaluation and treatment of this problem were appropriate in the emergency setting. Lab Data Radiology Impressions Cervical Spine CT 07/10/24 13:52 IMPRESSION: Mild multilevel spondylosis without significant spinal canal or neural foraminal stenosis. All radiology interpretation(s) finalized by discharge Discharge Plan Discharge Patient Disposition: Home Clinical Impression: Cervical radiculopathy Condition: Stable Prescriptions: New dexamethasone 6 mg tablet 6 mg PO DAILY 5 Days Qty: 5 0RF tramadol 50 mg tablet 50 mg PO Q8H PRN (Reason: pain) Qty: 10 0RF cyclobenzaprine 5 mg tablet 5 mg PO BEDTIME PRN (Reason: muscle spasm) Qty: 10 0RF No Action levothyroxine 75 mcg capsule 75 mcg PO DAILY montelukast [Singulair] 10 mg tablet 10 mg PO QDAY docusate sodium [Colace] 100 mg capsule 100 mg PO BID Eliquis 5 mg tablet 5 mg PO BID Patient Comments: holding since 03/15/2021 amlodipine 5 mg tablet 5 mg PO DAILY Myrbetriq 25 mg tablet extended release 24 hr See Rx Instructions .ROUTE .COMPLEX Qty: 30 2RF Dose Instruction: TAKE 1 TABLET BY MOUTH EVERY DAY FOR MIXED URINARY INCONTINENCE Rx Instructions: TAKE 1 TABLET BY MOUTH EVERY DAY FOR MIXED URINARY INCONTINENCE bupropion HCl [Wellbutrin SR] 200 mg tablet sustained-release 12 hr 200 mg PO BID Qty: 180 1RF Rx Instructions: Take one tablet in morning and at 2 pm buspirone 10 mg tablet 20 mg PO TID Qty: 540 1RF Rx Instructions: 90 day supply memantine 10 mg tablet 10 mg PO BID Qty: 180 1RF Rx Instructions: Take one tablet twice per day mirtazapine [Remeron] 30 mg tablet 30 mg PO .bedtime Qty: 90 1RF Rx Instructions: take one tablet by mouth each bedtime with the 15 mg tablet mirtazapine 15 mg tablet 15 mg PO .HS Qty: 90 1RF Rx Instructions: Take with 30 mg for total of 45 mg HS. trazodone 150 mg tablet 300 mg PO .bedtime Qty: 180 1RF Rx Instructions: Take two tablets at bedtime meloxicam 7.5 mg tablet 7.5 mg PO DAILY PRN (Reason: UNKNOWN) hydrocodone-acetaminophen 10-325 mg tablet 1 tab PO BID PRN (Reason: Pain) Qty: 8 0RF latanoprost 0.005 % drops 1 drp ophthalmic (eye) QPM atorvastatin 40 mg tablet 40 mg PO DAILY Rx Instructions: TAKE 1 TABLET BY MOUTH EVERY DAY oxybutynin chloride 10 mg tablet extended release 24hr 20 mg PO DAILY Rx Instructions: TAKE 2 TABLETS BY MOUTH DAILY omeprazole 20 mg capsule,delayed release(DR/EC) 20 mg PO DAILY Rx Instructions: TAKE 1 CAPSULE BY MOUTH EVERY DAY estradiol 2 mg tablet 2 mg PO DAILY Rx Instructions: TAKE 1 TABLET BY MOUTH EVERY DAY Discharge Orders: Discharge ED (Routine); Ordered 07/10/24 Ordered By: Carolina Ag Referrals: Meng Dotson DO [Primary Care Provider] - Discharge Diet: Usual diet Discharge Activity: Increase activity as tolerated Patient Instructions: Cervical Radiculopathy (ED), Opioid Safety, Pain Management Activity Restrictions/Additional Instructions: Thank you for choosing [facility] for your healthcare needs today. Please realize this is an emergency room and that we are providing you with a medical screening exam and this may not be complete and all inclusive of all the testing and or work up that you may need to determine your ailment or severity of your illness. You have been screened and evaluated and felt safe for discharge. Health conditions do change or evolve sometimes and as such it is important that you follow up with your Primary Doctor to be re checked, 3-5 days is a general good time frame for follow up. You are always welcome to return to the ED for re assessment if your symptoms are worsening or you have new concerns Coding Level of Care Code ED A And P Technician for [facility] Wilson
[2024-07-10] MEDS: HYDROcodone-acetaminophen 5-325 mg Tablet 1 TAB PO (14:38)
[2024-07-10] MEDS: dexamethasone 10 mg/mL INJ IM (14:38)
[2024-07-10 15:26] VITALS: BP 125/77; PULSE 75; RESP 16; O2SAT 94
== END 2024-07-10 15:24 | disposition home or self-care (01) ==
PROVIDERS: Emergency Provider Emergency Medicine; PCP Internal Medicine
DX: M54.12 Radiculopathy, cervical region (principal); Z79.01 Long term (current) use of anticoagulants; I25.10 Atherosclerotic heart disease of native coronary artery without angina pectoris; I10 Essential (primary) hypertension
CPT/HCPCS: 72125; 96372; 99284; J1100

== ENCOUNTER 2024-08-17 12:56 | Outpatient (CLI) | payer MEDICARE, MEDICAID, SELFPAY ==
--- NOTE | 2024-08-17 12:58 | MM_ITS ---
WS: [id number] Bilateral screening 3D tomosynthesis digital mammogram, 08/17/2024 12:58 PM Clinical Data: SCREEN Comparison: 08/15/2023, 07/09/2022, 05/24/2021, 09/20/2019, 07/22/2018, 07/04/2017, 06/27/2016, 5, 06/30/2014, 02/24/2013, 12/25/2011, 12/13/2010, 10/26/2009, 09/08/2008, 08/20/2007, 08/15/2006. Findings: No spiculated masses or clustered calcifications are seen. There are no secondary signs of carcinoma . MM/MM scr BI tomosynthesis [id number] Impression: Negative bilateral mammogram unchanged. Recommend annual screening mammograms. BIRADS: 1 - Negative. FOLLOW UP: 1 Year Follow-up DENSITY: The breasts are almost entirely fatty. The CAD food and beverage checker was used
== END 2024-08-17 12:57 | disposition home or self-care (01) ==
LOC: RAD 12:57
PROVIDERS: PCP Family Medicine; Visit Provider Family Medicine
DX: Z12.31 Encounter for screening mammogram for malignant neoplasm of breast (principal)
CPT/HCPCS: 77063; 77067

== ENCOUNTER 2024-10-01 06:04 | Emergency (ER) | payer MEDICARE, MEDICAID, SELFPAY ==
[2024-10-01 06:05] VITALS: BP 169/81; PULSE 72; RESP 16; TEMP 36.5; O2SAT 95
--- NOTE | 2024-10-01 06:06 | XRR_ITS ---
PROCEDURE INFORMATION: Exam: XR Chest Exam date and time: 10/01/2024 6:15 AM Age: 74 years old Clinical indication: Pain; Chest pressure; Additional info: Cp TECHNIQUE: Imaging protocol: Radiologic exam of the chest. Views: 1 view. COMPARISON: CR XR chest 2V* [id number] 10/18/2022 11:22 AM FINDINGS: Lungs: Unremarkable. No consolidation. Pleural spaces: Unremarkable. No pleural effusion. No pneumothorax. Heart/Mediastinum: Unremarkable. No cardiomegaly. Bones/joints: Unremarkable. XR/XR chest 1V portable [id number] IMPRESSION: No acute findings.
--- NOTE | 2024-10-01 06:11 | ECG_ITS ---
[employer] [facility] Test Date: 2024-10-01 Pat Name: Brii Vasquez Department: Room: Gender: Female Patient Companion: : 1950 Requested By: Nita Wong Order Number: [id number] [place] MD: Nicola Mcwilliams M.D. Measurements Intervals [place] Rate: 69 P: 35 [place]: 147 QRS: -38 QRSD: 93 T: -2 QT: 385 QTc: 415 Interpretive Statements SINUS RHYTHM WITH SINUS ARRHYTHMIA LEFT AXIS DEVIATION [QRS AXIS < -30] LOW QRS VOLTAGE IN PRECORDIAL LEADS [QRS DEFLECTION < 1.0 mV IN CHEST LEADS] MINIMAL VOLTAGE CRITERIA FOR LVH, CONSIDER NORMAL VARIANT [MEETS CRITERIA IN ONE OF: R(aVL), S(V1), R(V5), R(V5/V6)+S(V1)] POSSIBLE ANTERIOR MYOCARDIAL INFARCTION , PROBABLY OLD [30 ms Q WAVE IN V3/V4, OR R < 0.2 mV IN V4] Compared to ECG 07/11/2020 22:42:24 Left-axis deviation now present Low QRS voltage now present Myocardial infarct finding now present Electronically Signed On 10-02-2024 13:34:31 HEAD START DIRECTOR by Nicola Mcwilliams M.D. [id number]
[2024-10-01 06:28] LABS: Basophils # 0.1 10^3/uL (0.0-0.1); Basophils % 0.7 %; Eosinophils # 0.3 10^3/uL (0.0-0.8); Eosinophils % 3.5 %; Hematocrit 43.4 % (36-47); Lymphocytes # 3.1 10^3/uL (0.8-4.8); Lymphocytes % 34.5 %; Mean Corpuscular HGB Conc 31.8 g/dL (30-55); Mean Corpuscular Hemoglobin 28.7 pg (27-33); Mean Corpuscular Volume 90.2 fl (85-98); Mean Platelet Volume 8.9 fL (7.4-10.4); Monocytes # 0.8 10^3/uL (0.2-0.9); Monocytes % 8.5 %; Neutrophils # 4.68 10^3/uL (1.8-7.7); Neutrophils % 51.7 %; Nucleated Red Blood Cells % 0 %; Platelet Count 305 10^3/cmm (157-399); Red Blood Count 4.81 10^6/uL (3.85-5.65); White Blood Count 9.06 10^3/uL (3.29-11.43)
--- NOTE | 2024-10-01 06:33 | ED_ITS ---
HPI - Chest Pain 2 General: Chief Complaint: Chest Pain Stated Complaint: HTN, Chest Pain Time Seen by Provider: 10/01/24 06:05 Source: patient Mode of arrival: ambulatory Limitations: no limitations History of Present Illness: 74-year-old female states she started tran ving some chest pains at 4 today. States it been sharp pain she denies any shortness of breath or vomiting. Patient received aspirin nitro and route states her pain has improved. She had no diaphoresis no nausea. Associated symptoms: Deny abdominal pain, dyspnea, fever(s), nausea or vomiting Related Data Home Medications Medication Instructions Recorded Confirmed docusate sodium 100 mg capsule 100 mg PO BID 09/17/19 10/01/24 (Colace) levothyroxine 75 mcg capsule 75 mcg PO QAM 09/17/19 10/01/24 montelukast 10 mg tablet 10 mg PO DAILY 09/17/19 10/01/24 (Singulair) apixaban 5 mg tablet (Eliquis) 5 mg PO BID 03/19/21 10/01/24 amlodipine 5 mg tablet 5 mg PO QAM 11/09/21 10/01/24 atorvastatin 40 mg tablet 40 mg PO QAM 07/10/24 10/01/24 latanoprost 0.005 % eye drops 1 drp ophthalmic (eye) QPM 07/10/24 10/01/24 omeprazole 20 mg capsule,delayed 20 mg PO DAILY 07/10/24 10/01/24 release oxybutynin chloride 10 mg 20 mg PO DAILY 07/10/24 10/01/24 tablet,extended release 24 hr celecoxib 200 mg capsule 200 mg PO BID 10/01/24 10/01/24 estradiol 2 mg tablet 2 mg PO DAILY 10/01/24 10/01/24 fluticasone propionate 50 1 spray intranasal DAILY 10/01/24 10/01/24 mcg/actuation nasal spray,suspension mirabegron 25 mg tablet,extended 25 mg PO DAILY 10/01/24 10/01/24 release 24 hr (Myrbetriq) mirtazapine 15 mg tablet 15 mg PO BEDTIME 10/01/24 10/01/24 mirtazapine 30 mg tablet (Remeron) 30 mg PO BEDTIME 10/01/24 10/01/24 nystatin 100,000 unit/gram topical 1 applic topical BID PRN Skin 10/01/24 10/01/24 cream Irritation trazodone 150 mg tablet 300 mg PO BEDTIME 10/01/24 10/01/24 Previous Rx's Medication Instructions Recorded hydrocodone 10 mg-acetaminophen 1 tab PO BID PRN Pain #8 tabs 09/21/22 325 mg tablet cyclobenzaprine 5 mg tablet 5 mg PO BEDTIME PRN muscle spasm 07/10/24 #10 tabs bupropion HCl 200 mg tablet,12 hr 200 mg PO BID #180 tabs 09/14/24 sustained-release (Wellbutrin SR) buspirone 10 mg tablet 20 mg (2 x 10 mg) PO TID #540 tabs 09/14/24 memantine 10 mg tablet 10 mg PO BID #180 tabs 09/14/24 Allergies Allergy/AdvReac Type Severity Reaction Status Date / Time latex Allergy Intermediate Rash Verified 09/14/24 12:31 Iodinated Contrast Media Allergy Mild nausea Verified 09/14/24 12:31 meperidine [From Demerol] Allergy Mild nausea Verified 09/14/24 12:31 Review of Systems 2 Const: Denies: fever(s), chills, body aches or change in appetite ENMT: Denies: throat pain or dental pain Card: Reports: chest pain Resp: Denies: dyspnea GI: Denies: abdominal pain, nausea, vomiting or diarrhea : Denies: dysuria Musc: Denies: neck pain or back pain Skin/Breast: Denies: rash Neuro: Denies: headache(s) PFSH ED 2 PFSH: Medical History Monoclonal gammopathy History of pericarditis Degenerative joint disease of spine Degenerative arthritis History of deep vein thrombosis (DVT) of lower extremity Psychiatric care CAD (coronary artery disease) Obesity Dyslipidemia Sleep apnea Chronic post-traumatic stress disorder Major depressive disorder, recurrent severe without psychotic features Postmenopausal HRT (hormone replacement therapy) 12/06/2015. Stopped Prempro. New Rx: Estradiol 1 mg daily. #45. NR. 01/09/2016. Estradiol 1mg well tolerated. Renewal verbal Rx by Dr. Lala. 03/07/2016. Poor symptom control. New Rx: Estradiol 2 mg daily. 03/28/2016. Poor symptom control. New Rx: Premarin. 04/29/2016. Refill provided for Premarin 1.25mg, well tolerated. - Happy with estrogen. Feels the benefits outweigh the risk. Refills provided Hypothyroid Hypertension Vaginal vault prolapse, posthysterectomy Overactive bladder Surgical History History of rotator cuff surgery Left shoulder Hx of removal of cyst From left wrist Status post surgery TOSS History of tonsillectomy History of bladder surgery (07/19/09) History of hysterectomy TVH, Anterior Repair with Mesh, Transobturator Suburethral Sling, Cystoscopy. Indication: Uterine prolapse, cystocele, stress urinary incontinence. [facility] [place], Dr. Adalberto Harris. Family History Unknown Thyroid disease Patient denies medical problems Denies family history of: breast/ovarian/colon cancer Family/Other Thyroid disease Cousin Uterine cancer Aunt Grandmother Stroke Sister Diabetes Father , IN HIS 40'S Automobile accident Mother , AT AGE 68 Lung disease Other Chronic post-traumatic stress disorder Social History Smoking and tobacco/nicotine status: never used tobacco/nicotine Quit status (tobacco/nicotine): has quit using Year quit tobacco: 1999 Second hand smoke exposure: No Alcohol intake: former Substance/Drug Use: never Marital status: Current occupational status: retired Physical Exam 2 Const: COMMON NORMALS: no acute distress, patient oriented x3 and healthy appearing HENMT: COMMON NORMALS: normocephalic and atraumatic HEAD & SCALP: n ormocephalic and atraumatic Neck/C-Spine: COMMON NORMALS: full ROM and supple Chest: COMMONS NORMALS: normal inspection of the chest Resp: COMMON NORMALS: normal respiratory effort, No retractions, No use of accessory muscles and clear to auscultation bilaterally AUSCULTATION: clear to auscultation bilaterally Cardio: COMMON NORMALS: regular rate, regular rhythm and No murmurs present (Cardio) RATE: regular rate RHYTHM: regular rhythm GI: COMMON NORMALS: Normal to inspection, nondistended, normoactive bowel sounds present, Soft to palpation, non-tender and no masses PALPATION: Yes Soft to palpation Extremity: COMMON NORMALS: normal to inspection and full ROM Neuro: COMMON NORMALS: patient oriented x3, moves all extremities and no focal motor deficits Psych: COMMON NORMALS: mental status grossly normal, Normal thought process present and cooperative THOUGHT PROCESS: Normal thought process present Skin: COMMON NORMALS: no rashes or lesions noted and no wounds GENERAL SKIN EXAM: no rashes or lesions noted Course 2 Vital Signs: Vital signs: Vital Signs Temperature 97.7 F 10/01/24 06:05 Pulse Rate 67 10/01/24 08:05 Respiratory Rate 21 H 10/01/24 08:05 Blood Pressure 127/83 10/01/24 08:05 Pulse Oximetry 96 10/01/24 08:05 Oxygen Delivery Me thod Room Air 10/01/24 06:05 MDM - Chest Pain Medical Decision Making Patient presents here with chest pains atypical in nature initial repeat troponins here are negative no signs of ACS she has no signs of dissection or pulmonary embolism she stable for discharge follow-up with PCP return if worsening. Medical Records I reviewed the patient's medical records. Lab Data I reviewed the patient's lab results. 10/01/24 06:10 10/01/24 06:10 Radiology Impressions Chest X-Ray 10/01/24 06:06 IMPRESSION: No acute findings. Laboratory Results WBC 9.06 10^3/uL (3.29-11.43) 10/01/24 06:10 RBC 4.81 10^6/uL (3.85-5.65) 10/01/24 06:10 Hgb 13.80 g/dL (11.27-16.99) 10/01/24 06:10 Hct 43.4 % (36-47) 10/01/24 06:10 MCV 90.2 fl (85-98) 10/01/24 06:10 MCH 28.7 pg (27-33) 10/01/24 06:10 MCHC 31.8 g/dL (30-55) 10/01/24 06:10 RDW 14.0 % (12.1-15.1) 10/01/24 06:10 Plt Count 305 10^3/cmm (157-399) 10/01/24 06:10 MPV 8.9 fL (7.4-10.4) 10/01/24 06:10 Neut % (Auto) 51.7 % 10/01/24 06:10 Lymph % (Auto) 34.5 % 10/01/24 06:10 Waller % (Auto) 8.5 % 10/01/24 06:10 Eos % (Auto) 3.5 % 10/01/24 06:10 Baso % (Auto) 0.7 % 10/01/24 06:10 Neut # (Auto) 4.68 10^3/uL (1.8-7.7) 10/01/24 06:10 Lymph # (Auto) 3.1 10^3/uL (0.8-4.8) 10/01/24 06:10 [place] # (Auto) 0.8 10^3/uL (0.2-0.9) 10/01/24 06:10 Eos # (Auto) 0.3 10^3/uL (0.0-0.8) 10/01/24 06:10 Baso # (Auto) 0.1 10^3/uL (0.0-0.1) 10/01/24 06:10 Nucleated RBC % (auto) 0 % 10/01/24 06:10 Nucleated RBCs # 0.0 /100WBC 10/01/24 06:10 PT 12.20 SECONDS (12.1-14.9) 10/01/24 06:10 INR 0.84 (0.8-1.2) 10/01/24 06:10 Sodium 137 mmol/L (136-145) 10/01/24 06:10 Potassium 4.6 mmol/L (3.5-5.1) 10/01/24 06:10 Chloride 100 mmol/L (98-107) 10/01/24 06:10 Carbon Dioxide 25 mmol/L (22-29) 10/01/24 06:10 Anion Gap 16.6 (5-19) 10/01/24 06:10 BUN 24 mg/dL (8-23) H 10/01/24 06:10 Creatinine 0.9 mg/dL (0.5-0.9) 10/01/24 06:10 GFR Calculation Not Reportable 10/01/24 06:10 Glucose 95 mg/dL (65-115) 10/01/24 06:10 Calculated Osmolality 288 mOsm/kg (285-295) 10/01/24 06:10 Calcium 9.5 mg/dL (8.5-10.5) 10/01/24 06:10 Total Bilirubin 0.2 mg/dL (0.15-1.2) 10/01/24 06:10 AST 18 U/L (0-32) 10/01/24 06:10 ALT 11 U/L (0-33) 10/01/24 06:10 Alkaline Phosphatase 111 U/L (35-105) H 10/01/24 06:10 Troponin T Baseline 21 ng/L (0-10) H 10/01/24 06:10 Troponin T 120 Minute 18.60 ng/L (0-10) H 10/01/24 08:03 Delta Troponin T -2.40 ABS# (0-10) L 10/01/24 08:03 NT-Pro-B Natriuret Pep 256 pg/mL (0-125) H 10/01/24 06:10 Total Protein 6.8 g/dL (6.6-8.7) 10/01/24 06:10 Albumin 4.0 g/dL (3.5-5.2) 10/01/24 06:10 Globulin 2.8 g/dL (1.3-4.6) 10/01/24 06:10 All radiology interpretation(s) finalized by discharge EKG Data EKG 1: I personally reviewed and interpreted this EKG as follows: EKG interpretation date: 10/01/24 EKG interpretation time: 06:11 Interpretation: nsr hr [address] elevation qrs 93 qtc 405 Discharge Plan Discharge Patient Disposition: Home Clinical Impression: Chest pain Condition: Stable Prescriptions: No Action levothyroxine 75 mcg capsule 75 mcg PO QAM montelukast [Singulair] 10 mg tablet 10 mg PO DAILY docusate sodium [Colace] 100 mg capsule 100 mg PO BID Eliquis 5 mg tablet 5 mg PO BID Patient Comments: holding since 03/15/2021 amlodipine 5 mg tablet 5 mg PO QAM bupropion HCl [Wellbutrin SR] 200 mg tablet sustained-release 12 hr 200 mg PO BID Qty: 180 1RF buspirone 10 mg tablet 20 mg PO TID Qty: 540 1RF memantine 10 mg tablet 10 mg PO BID Qty: 180 1RF hydrocodone-acetaminophen 10-325 mg tablet 1 tab PO BID PRN (Reason: Pain) Qty: 8 0RF latanoprost 0.005 % drops 1 drp ophthalmic (eye) QPM atorvastatin 40 mg tablet 40 mg PO QAM oxybutynin chloride 10 mg tablet extended release 24hr 20 mg PO DAILY omeprazole 20 mg capsule,delayed release(DR/EC) 20 mg PO DAILY cyclobenzaprine 5 mg tablet 5 mg PO BEDTIME PRN (Reason: muscle spasm) Qty: 10 0RF celecoxib 200 mg capsule 200 mg PO BID nystatin 100,000 unit/gram cream 1 applic TOPICAL BID PRN (Reason: Skin Irritation) fluticasone propionate 50 mcg/actuation spray,suspension 1 spray INTRANASAL DAILY mirtazapine [Remeron] 30 mg tablet 30 mg PO BEDTIME Rx Instructions: along with 15 mg to=45 mg total trazodone 150 mg tablet 300 mg PO BEDTIME estradiol 2 mg tablet 2 mg PO DAILY mirtazapine 15 mg tablet 15 mg PO BEDTIME Rx Instructions: along with 30 mg to=45 mg total. mirabegron [Myrbetriq] 25 mg tablet extended release 24 hr 25 mg PO DAILY Discharge Orders: Discharge ED (Routine); Ordered 10/01/24 Ordered By: Nita Wong Referrals: Thierry Purcell MD [Primary Care Provider] - 4-7 days Discharge Diet: Advance as tolerated Discharge Activity: Resume usual activity Patient Instructions: Chest Pain (ED) Coding Level of Care Code ED Transformation Specialist for Hilton Wilson
[2024-10-01 06:40] VITALS: BP 169/81; PULSE 75; RESP 20; O2SAT 97
[2024-10-01 06:41] LABS: Troponin(5th) Baseline 21 ng/L (0-10)
[2024-10-01 06:44] LABS: INR 0.84 (0.8-1.2)
[2024-10-01 06:49] LABS: Alanine Aminotransferase 11 U/L (0-33); Alkaline Phosphatase 111 U/L (35-105); Anion Gap 16.6 (5-19); Aspartate Amino Transferase 18 U/L (0-32); Blood Urea Nitrogen 24 mg/dL (8-23); Calcium 9.5 mg/dL (8.5-10.5); Carbon Dioxide 25 mmol/L (22-29); Chloride 100 mmol/L (98-107); Globulin 2.8 g/dL (1.3-4.6); Glucose 95 mg/dL (65-115); NT Pro B Type Natriuretic Pept 256 pg/mL (0-125); Osmolality Calculated 288 mOsm/kg (285-295); Potassium 4.6 mmol/L (3.5-5.1); Sodium 137 mmol/L (136-145); Total Bilirubin 0.2 mg/dL (0.15-1.2); Total Protein 6.8 g/dL (6.6-8.7)
[2024-10-01 06:50] VITALS: BP 169/81; PULSE 73; RESP 22; O2SAT 95
[2024-10-01 07:30] VITALS: PULSE 77; O2SAT 94
[2024-10-01 08:05] VITALS: BP 127/83; PULSE 67; RESP 21; O2SAT 96
--- NOTE | 2024-10-01 08:11 | PC.PHAR ---
Pt states she only took her thyroid medication this morning. 10/01/24
[2024-10-01 08:58] VITALS: BP 137/80; PULSE 87; O2SAT 98
== END 2024-10-01 09:00 | disposition home or self-care (01) ==
PROVIDERS: Emergency Provider Emergency Medicine; PCP Family Medicine
DX: R07.9 Chest pain, unspecified (principal); Z87.891 Personal history of nicotine dependence; E78.5 Hyperlipidemia, unspecified; I25.10 Atherosclerotic heart disease of native coronary artery without angina pectoris; I10 Essential (primary) hypertension
CPT/HCPCS: 36415; 71045; 80053; 83880; 84484; 85025; 85610; 93005; 99285

== ENCOUNTER → 2024-12-30 09:09 | Outpatient (BNVA) | payer MEDICARE, MEDICAID, OTHER, SELFPAY | PROVIDERS: PCP Family Medicine; Visit Provider Obstetrics & Gynecology | DX: N39.46 Mixed incontinence (principal); N81.9 Female genital prolapse, unspecified; F41.1 Generalized anxiety disorder; R35.89 Other polyuria; Z87.440 Personal history of urinary (tract) infections | CPT/HCPCS: 81000 ==

== ENCOUNTER 2025-05-26 08:11 | Outpatient (CLI) | payer MEDICARE, MEDICAID, SELFPAY ==
--- NOTE | 2025-05-26 08:20 | MR_ITS ---
WS: [id number] MRI LEFT KNEE HISTORY: LT SYNOVIAL CYST COMPARISON: None available. Anterior cruciate ligament: Intact. Posterior cruciate ligament: Intact. Medial collateral ligament: Intact. Posterior lateral corner structures: Intact. Medial menisci: Normal anterior horn. Posterior horn is abnormal signal with loss of the normal shape. Complex tear and abnormal signal extending into the meniscal root. There is a rounded configuration of the posterior meniscus suggesting this is probably a meniscal fragment. Abnormal signal between the meniscus and the capsule suggestive of meniscal capsular separation. Lateral meniscus: Abnormal shape and signal in the posterior meniscus. There is blunting of the free edge and abnormal signal extending into the meniscal root. Anterior horn is intact. Extensor mechanism: Distal quadriceps tendon and patellar tendons are intact. Fluid and soft tissue: Small joint effusion. Moderate-sized Velazquez's cyst. Osseous and articular structures: Patellofemoral compartment: Moderate narrowing of the patellofemoral joint space. Extensive loss of cartilage over the patellar facets, medial greater than lateral. There is a small amount of marrow edema along the medial patellar facet. Loss of cartilage also over the trochlear groove, greatest medially. There is a small amount of subchondral edema along the lateral surface of the trochlea. Medial compartment: Moderate narrowing the medial compartment with diffuse moderate chondromalacia. Thinning and fissuring of the cartilage. Small marginal osteophytes. No marrow edema. Lateral compartment: Moderate narrowing of the lateral compartment. Diffuse thinning and fissuring of the cartilage. Full-thickness cartilage defects along the tibial plateau and the weightbearing surface of the femoral condyle. There is a small amount of edema adjacent to the intertrochlear notch of the lateral femoral condyle. MR/MR knee LT wo con* [id number] IMPRESSION: 1. Bilateral complex tears involving the posterior horns. Complex tears extend into the meniscal roots. 2. Meniscocapsular separation posterior horn medial meniscus. 3. Meniscal fragment suspected associated with the tear of the posterior horn medial meniscus. 4. Moderate size Velazquez's cyst. 5. Small joint effusion. 6. Moderate tricompartment joint space narrowing with loss of cartilage and ma rrow edema as described above. 7. Largest cartilage defects involve the lateral compartment along the tibial plateau and weightbearing surface of the femoral condyle. 8. Extensive loss of cartilage over the patella facets, medial greater than la teral and loss of cartilage over the femoral trochlea.
== END 2025-05-26 08:12 | disposition home or self-care (01) ==
LOC: RAD 08:12
PROVIDERS: PCP Family Medicine; Visit Provider Family Medicine
DX: M71.22 Synovial cyst of popliteal space [Baker], left knee (principal)
CPT/HCPCS: 72114; 73721

== ENCOUNTER → 2025-06-13 13:01 | Outpatient (BNVA) | payer MEDICARE, MEDICAID, SELFPAY | PROVIDERS: PCP Family Medicine; Visit Provider Specialist | DX: M17.0 Bilateral primary osteoarthritis of knee (principal); M23.204 Derangement of unspecified medial meniscus due to old tear or injury, left knee; M71.22 Synovial cyst of popliteal space [Baker], left knee; E66.01 Morbid (severe) obesity due to excess calories; Z68.41 Body mass index [BMI] 40.0-44.9, adult | CPT/HCPCS: 73560; 73565; 99214 ==